=== PATIENT | male | born 1955 | race Caucasian/White ===

== ENCOUNTER → 2016-09-09 | Outpatient (CLI) | payer OTHER ==
[~2016-09-09] MED LIST: ASPCH81 PO; ASPI81TA28 PO; DIAZ-165 PO; GENT0.3S6 NAE; IBUP-1428 PO; LEVA1.25 INH; LEVA1.258 INH; LEVA45AE INH; LEVO125T4 PO; LEVO125T57 PO; LISI20TA55 PO; METO50TA7 PO; MODA1TAB PO; OXYC1TAB3 PO; OXYM10TA6 PO
[2016-09-09 13:44] LABS: INFLUENZA B PCR Neg for Influ B (NEG)
[2016-09-09 13:46] LABS: INFLUENZA A PCR POS for Influ A (NEG)
== END | disposition home or self-care (01) ==
LOC: C.LAB 11:30
PROVIDERS: ATTEND Internal Medicine Critical Care Medicine
DX: M79.1 Myalgia (principal); R09.89 Other specified symptoms and signs involving the circulatory and respiratory systems

== ENCOUNTER → 2016-10-04 | Outpatient (CLI) | payer OTHER ==
[2016-10-04 15:41] LABS: BASO ABS # 0.05 K/uL (0-0.2); COMPLETE YES; EOS % 8.8 %; HEMATOCRIT 43.3 % (42-52); IG% 0.4 %; LYMPH ABS # 2.29 K/uL (1.2-3.4); MEAN CORPUSCULAR HGB CONC 35.6 g/dl (32-36); MEAN PLATELET VOLUME 9.9 fL (7.4-10.4); MONO % 14.4 %; NEUT % 31.4 %; PLATELET COUNT 206 K/uL (130-400); RED BLOOD COUNT 4.81 M/uL (4.7-6.1); WHITE BLOOD COUNT 5.21 K/uL (4.8-10.8)
[2016-10-04 16:05] LABS: ALT/SGPT 43 U/L (12-78); AST/SGOT 36 U/L (15-37); BLOOD UREA NITROGEN 16 mg/dl (7-18); BUN/CREATININE RATIO 17.9 (10-20); CALCIUM 9.1 mg/dl (8.5-10.1); CARBON DIOXIDE 30 mmol/L (21-32); CHLORIDE 101 mmol/L (98-107); CHOLESTEROL 173 mg/dl (0-200); CREATININE 0.91 mg/dl (0.60-1.40); GLUCOSE 105 mg/dl (70-99); POTASSIUM 3.8 mmol/L (3.5-5.1); SODIUM 139 mmol/L (136-145)
[2016-10-04 16:22] LABS: ALKALINE PHOSPHATASE 99 U/L (45-117); CHOLESTEROL/HDL RATIO 5.6; HDL CHOLESTEROL 31 mg/dl; LDL CHOLESTEROL CALCULATED 123 mg/dl; THYROID STIMULATING HORMONE 0.505 uIu/ml (0.300-4.500); TOTAL IRON BINDING CAPACITY 313 mcg/dl (250-450); TRIGLYCERIDES 94 mg/dl (0-150); VERY LOW DENSITY LIPOPROT CALC 19 mg/dl
--- NOTE | 2016-10-08 10:04 | CODING QUERY MEDICAL NECESSITY ---
SUPPORTING DIAGNOSIS NEEDED Her ALFREDO, A supporting diagnosis is required for the test/procedure performed on this patient in order for us to be reimbursed by the patient's insurance. Please provide a supporting diagnosis for the following test/procedure listed below next to the test name along with your signature. *If there is no additional diagnosis for this patient that would support the following test/procedure please document that below next to the test/procedure. Test(s)/Procedure(s) that require a supporting diagnosis: * ([id number]) B12 VITAMIN LEVEL DIAGNOSIS: * ([id number]) VITAMIN D, 1, 25-DIHYDROXY DIAGNOSIS: * [id number] PSA DIAGNOSIS: DATE OF SERVICE: 10/04/16 Provider Signature: Date: Thank you Sameer Tapia [facility] Information Management Once completed, please kindly fax back to [phone] For questions please call [phone]
[2016-10-09 05:34] LABS: HEPATITIS C RNA TMA QUAL Not detected
== END | disposition home or self-care (01) ==
LOC: C.LAB 14:29
PROVIDERS: ATTEND Internal Medicine Pulmonary Disease
DX: I10 Essential (primary) hypertension (principal); B18.2 Chronic viral hepatitis C; E03.9 Hypothyroidism, unspecified; I51.9 Heart disease, unspecified; M79.1 Myalgia; G47.419 Narcolepsy without cataplexy; G47.33 Obstructive sleep apnea (adult) (pediatric); R79.89 Other specified abnormal findings of blood chemistry

== ENCOUNTER 2016-11-09 12:29 | Emergency (ER) | payer OTHER ==
[~2016-11-09] VITALS: Ht 182.9 cm; Wt 102.3 kg
[~2016-11-09 12:29] MED LIST changes: -ASPI81TA28 PO; -DIAZ-165 PO; -GENT0.3S6 NAE; -LEVA1.258 INH; -LEVA45AE INH; -LEVO125T4 PO
[2016-11-09 12:35] VITALS: TEMP 37.1; Ht 182.9 cm; Wt 102.3 kg
[2016-11-09] MEDS ORDERED: ASPI81TA28 PO (12:45)
[2016-11-09] MEDS ORDERED: LEVA45AE INH (12:52)
[2016-11-09] MEDS ORDERED: GENT0.3S6 NAE (12:52)
[2016-11-09] MEDS ORDERED: LEVO125T4 PO (12:52)
[2016-11-09] MEDS ORDERED: LEVA1.258 INH (12:52)
[2016-11-09] MEDS ORDERED: DIAZ-165 PO (12:52)
--- NOTE | 2016-11-09 13:41 | DIAGNOSTIC IMAGING REPORT ---
RIGHT FOOT 3 VIEWS CLINICAL HISTORY: Right foot pain. FINDINGS: 3 views of the right foot are compared to study dated 02/03/2009. The skeletal structures are well mineralized. No fracture is seen. Mild arthritic change is identified at the first tarsometatarsal and metatarsophalangeal joints. The joint spaces are otherwise preserved. There is a small dorsal calcaneal enthesophyte. Mild soft tissue swelling is suspected. A tiny thin metallic foreign body is identified on the plantar surface of the foot at the level of the metatarsal bases. IMPRESSION: 1. Mild soft tissue swelling and mild arthritic change as above. No acute bony abnormality is identified. 2. A tiny thin metallic foreign body is identified along the plantar aspect of the midfoot. Electronically signed by: Fabiano Staley M.D. 11/09/2016 1:40 PM Dictated Date/Time: 11/09/2016 1:37 PM
--- NOTE | 2016-11-09 14:11 | EMERGENCY ROOM VISIT NOTE ---
History First contact with patient: 12:59 Chief Complaint: FOOT PAIN Stated Complaint: INJURED R FOOT History of Present Illness The patient is a 61 year old male who presents to the Emergency Room with complaints of an injury to his right foot while helping a friend carry a heavy object down 2 flights of stairs 2 days ago. The patient reports that he did not know that there was a second flight, and when he made the turn, stepped down onto the step. The patient reports immediate pain in the bottom of the foot that has persisted. He has also noticed significant swelling. He denies any pain extending into the midfoot or leg. Denies paresthesias or numbness of the right foot or toes. The patient rates his discomfort a 7 out of 10 with weightbearing. Review of Systems 10 system review was performed and was negative except for pertinent positives and negatives as indicated in history of present illness Past Medical/Surgical History Medical Problems: (1) Herniated disc (2) lung problems Family History Diabetes mellitus Heart disease Hypertension Social History Smoking Status: Former Smoker Marital Status: Housing Status: lives with family Current/Historical Medications Scheduled Aspirin (Aspirin Ec), 81 MG PO DAILY Levothyroxine Sodium (Levothyroxine Sodium), 1 TAB PO DAILY Lisinopril/Hctz (Prinzide 20-25MG), 1 TAB PO BID Metoprolol Succ (Toprol Xl) (Toprol-Xl), 50 MG PO BID Modafinil (Provigil), 200 MG PO DAILY Oxycodone Ir (Roxicodone Ir), 10 MG PO Q6H Scheduled PRN Diazepam (Valium), 5 MG PO UD PRN for spasms Gentamicin Sulfate (Ophth) (Gentak), 2 SPRAYS LETITIA UD PRN for sinus infection Ibuprofen (Motrin), 800 MG PO Q8H PRN for Pain Levalbuterol Hcl (Levalbuterol Hcl), 3 ML INH QID PRN for Shortness of Breath Levalbuterol Tartrate (Levalbuterol Tartrate Hfa), 2 PUFF INH UD PRN for asthma symptoms Allergies Coded Allergies: Acetaminophen (Verified Allergy, Unknown, HAS TAKEN PERCOCET, 09/22/09) Physical Exam Vital Signs Date Time Temp Pulse Resp B/P Pulse Ox O2 Delivery O2 Flow Rate FiO2 11/09/16 12:35 37.1 60 18 166/92 96 Physical Exam CONSTITUTIONAL: Healthy and well nourished. Alert and oriented X 3 with positive affect. Patient does not appear in any acute distress. HEENT: Normocephalic, atraumatic. Pupils equal, round and reactive. NECK: Full active range of motion without discomfort. MUSCULOSKELETAL: Examination of the right foot shows notable edema near the origin of the plantar fascia. The patient has no significant tenderness to palpation over the medial or lateral calcaneal region. There is no tenderness to palpation through the metatarsal heads, phalanges or dorsal midfoot. Ankle exam is also normal. Capillary refill is less than 2 seconds. INTEGUMENTARY: No rash or other significant dermatologic conditions noted. NEUROLOGIC: Right foot and toes are sensory intact. Medical Decision & Procedures ER Provider Diagnostic Interpretation: My interpretation of right foot x-rays does not show any acute fractures or dislocations. Radiologist report is as follows: RIGHT FOOT 3 VIEWS CLINICAL HISTORY: Right foot pain. FINDINGS: 3 views of the right foot are compared to study dated 02/03/2009. The skeletal structures are well mineralized. No fracture is seen. Mild arthritic change is identified at the first tarsometatarsal and metatarsophalangeal joints. The joint spaces are otherwise preserved. There is a small dorsal calcaneal enthesophyte. Mild soft tissue swelling is suspected. A tiny thin metallic foreign body is identified on the plantar surface of the foot at the level of the metatarsal bases. IMPRESSION: 1. Mild soft tissue swelling and mild arthritic change as above. No acute bony abnormality is identified. 2. A tiny thin metallic foreign body is identified along the plantar aspect of the midfoot. ED Course Patient history and physical exam were performed. Nurse's notes were reviewed. The patient refused any analgesics while in the emergency department. X-rays of the right foot were normal. The patient was offered crutches, but refused. I also suggested that he follow-up with orthopedics for further reevaluation. The patient reports that he likely would not do this either. The patient was given instructions on the importance of deep ice massaging and stretching. If his symptoms are not better within the next week, or significantly worsen, I did encourage him to follow up with orthopedics for further management. The patient was happy with plan of care, voiced understanding of all discharge instructions, and rated his pain a 4 out of 10 at the conclusion of my exam. Medical Decision Impression Primary Impression: Traumatic plantar fasciitis Departure Information Referrals Cristhian Her PA-C (PCP) Patient Instructions My [facility]
[2016-11-09 14:16] VITALS: BP 183/106; PULSE 58; O2SAT 96
== END 2016-11-09 14:17 | disposition home or self-care (01) ==
LOC: C.EDB 12:29 → C.EDD 14:17
DX: M72.8 Other fibroblastic disorders (principal); Z87.891 Personal history of nicotine dependence; Z79.82 Long term (current) use of aspirin

== ENCOUNTER → 2017-01-10 | Outpatient (CLI) | payer OTHER ==
[~2017-01-10] MED LIST changes: -ASPCH81 PO; +ASPI81TA28 PO; +DIAZ-165 PO; +GENT0.3S6 NAE; -LEVA1.25 INH; +LEVA1.258 INH; +LEVA45AE INH; +LEVO125T5 PO; -LEVO125T57 PO; -OXYM10TA6 PO
--- NOTE | 2017-01-10 13:23 | DIAGNOSTIC IMAGING REPORT ---
LEFT WRIST 4 VIEWS HISTORY: Left wrist pain. COMPARISON: None. FINDINGS: There is no fracture or dislocation. Mild soft tissue swelling. Severe osteoarthritis of the first carpometacarpal joint. No radiopaque foreign bodies. IMPRESSION: No fractures. Electronically signed by: Blayne Winters M.D. 01/10/2017 1:22 PM Dictated Date/Time: 01/10/2017 1:19 PM
== END | disposition home or self-care (01) ==
LOC: C.RAD 12:39
PROVIDERS: ATTEND Physician Assistant
DX: M25.539 Pain in unspecified wrist (principal)

== ENCOUNTER → 2017-11-13 | Outpatient (CLI) | payer OTHER ==
[~2017-11-13] MED LIST changes: -METO50TA7 PO; +METO50TA8 PO
--- NOTE | 2017-11-13 18:18 | DIAGNOSTIC IMAGING REPORT ---
R HIP UNILATERAL 2 VIEWS CLINICAL HISTORY: Chronic right hip pain. COMPARISON: CT of the abdomen and pelvis November 10, 2007. FINDINGS: A 2.3 cm bone island is noted within the intertrochanteric portion of the right femur. No acute fracture is identified. Note is made of marked superior joint space narrowing. There is extensive osteophytosis. There is no evidence for avascular necrosis. IMPRESSION: 1. No acute fracture. 2. Severe osteoarthritis of the right hip. Electronically signed by: Yassine Meredith M.D. 11/13/2017 6:17 PM Dictated Date/Time: 11/13/2017 6:15 PM
--- NOTE | 2017-11-13 18:21 | DIAGNOSTIC IMAGING REPORT ---
L-SPINE MIN 4 VIEWS ROUTINE CLINICAL HISTORY: 62 years-old Male presenting with G89.29 Chronic pain. TECHNIQUE: Frontal, bilateral oblique, lateral, and coned in lateral views of the lumbar spine were obtained. COMPARISON: CT of the abdomen and pelvis from 11/10/2007. FINDINGS: Straightening of normal lumbar lordosis likely due to multilevel degenerative changes. No significant scoliosis. Vertebral bodies maintain normal height and alignment. Intervertebral disc height loss to varying degrees at every level with vacuum disc phenomenon also noted at nearly every level. Prominent osteophytosis. Subchondral sclerosis evident at L3-4. Posterior bony spurring noted at L2-3 and L3-4. Facet arthropathy suspected in the lower lumbar region. There may be osseous neural foraminal narrowing from L3-4 through L5-S1. No compression deformity or evidence of subluxation. IMPRESSION: Significant multilevel degenerative changes with suspected osseous neural foraminal narrowing from L3-4 through L5-S1. Electronically signed by: Deshaun Joseph M.D. 11/13/2017 6:20 PM Dictated Date/Time: 11/13/2017 6:17 PM
== END | disposition home or self-care (01) ==
LOC: C.RAD 17:37
PROVIDERS: ATTEND Physician Assistant
DX: G89.29 Other chronic pain (principal); M16.11 Unilateral primary osteoarthritis, right hip

== ENCOUNTER 2019-09-13 09:02 | Inpatient (IN) ==
--- NOTE | 2019-08-13 13:30 | PAT Medication Instructions ---
Medication Instructions Date of Service August 13, 2019 Home Medications Medication Instructions Recorded oxycodone 15 mg tablet 15 mg PO QID #120 tab 08/09/19 albuterol sulfate 1 puff INHALATION Q6H PRN armodafinil [Nuvigil] 250 mg PO QAM aspirin [Aspirin Low Dose] 81 mg PO QPM cyanocobalamin (vitamin B-12) 2,500 mcg SUBLINGUAL DAILY PRN levalbuterol HCl 1.25 mg INHALATION TID PRN levothyroxine 125 mcg PO QAM lisinopril-hydrochlorothiazide 1 tab PO BID loratadine 10 mg PO DAILY PRN metoprolol tartrate 50 mg PO BID [Multivitamin 50 Plus] 1 tab PO QAM [[place]-3 Fish Oil] 1 cap PO QPM pseudoephedrine HCl 30 mg PO Q6H PRN oxycodone 15 mg tablet 15 mg PO QID STOP taking 2 weeks before surgery If surgery is within 2 weeks, stop taking as soon as possible. [[place]-3 Fish Oil] 1 cap PO QPM DO NOT take the morning of surgery armodafinil [Nuvigil] 250 mg PO QAM cyanocobalamin (vitamin B-12) 2,500 mcg SUBLINGUAL DAILY PRN lisinopril-hydrochlorothiazide 1 tab PO BID loratadine 10 mg PO DAILY PRN [Multivitamin 50 Plus] 1 tab PO QAM pseudoephedrine HCl 30 mg PO Q6H PRN Take morning of surgery With a small sip of water, OTHERWISE NOTHING TO EAT OR DRINK AFTER MIDNIGHT: albuterol sulfate 1 puff INHALATION Q6H PRN (if needed) levalbuterol HCl 1.25 mg INHALATION TID PRN (if needed) levothyroxine 125 mcg PO QAM metoprolol tartrate 50 mg PO BID oxycodone 15 mg tablet 15 mg PO QID (if needed, may be taken up to four hours before surgery) Take evening before surgery albuterol sulfate 1 puff INHALATION Q6H PRN (if needed) aspirin [Aspirin Low Dose] 81 mg PO QPM cyanocobalamin (vitamin B-12) 2,500 mcg SUBLINGUAL DAILY PRN (if needed) levalbuterol HCl 1.25 mg INHALATION TID PRN (if needed) lisinopril-hydrochlorothiazide 1 tab PO BID loratadine 10 mg PO DAILY PRN (if needed) metoprolol tartrate 50 mg PO BID pseudoephedrine HCl 30 mg PO Q6H PRN (if needed) oxycodone 15 mg tablet 15 mg PO QID Other Notes If you have any questions please call us at [phone] or [phone] or [phone] or [phone]
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
[2019-08-13 14:44] LABS: Appearance Urine Clear (Clear); Bilirubin Urine Negative (Negative); Blood Urine Negative (Negative); Color Urine Yellow; Glucose Urine UA Negative (Negative); Ketones Urine Negative (Negative); Leukocyte Esterase Urine Negative (Negative); Nitrite Urine Negative (Negative); Protein Urine Negative (Negative); Specific Gravity Urine 1.016 (1.000-1.030); Urobilinogen Urine Negative (Negative)
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
[~2019-09-13 09:02] MED LIST changes: +ACETAMINOPHEN 500 MG TAB PO SCH; -ASPI81TA28 PO; +BUPIVACAINE 0.5 % 5 MG/1 ML PF 10ML VIAL ONE; +CEFAZOLIN 2000MG 2,000 MG/15 ML SYR IV SCH; +CeleBREX 200 MG CAP PO SCH; -DIAZ-165 PO; +FAMOTIDINE 20 MG TAB PO SCH; -GENT0.3S6 NAE; -IBUP-1428 PO; -LEVA1.258 INH; -LEVA45AE INH; -LEVO125T5 PO; -LISI20TA55 PO; +LR 15ML/HR IV SCH; +LR 500ML BOLUS, THEN 15ML/HR IV SCH; +LR 60ML/HR IV SCH; -METO50TA8 PO; +METOCLOPRAMIDE HCL 10 MG TABLET PO SCH; -MODA1TAB PO; -OXYC1TAB3 PO; +ROPIVACAINE 0.5% HCL/PF 150 MG, BUPIVACAINE 0.5% MPF 30 ML, EPINEPHrine 30MG/30ML (OR U... INSTIL SCH; +TRANEXAMIC ACID 1,000 MG **IV Intra-op IV SCH; +TRANEXAMIC ACID 1,000 MG **IV Pre-op IV SCH; +dexAMETHasone 4 MG TAB PO SCH
[2019-09-13] MEDS ORDERED: fentaNYL citrate 100 MCG/2 ML VIAL ONE (09:11)
[2019-09-13] MEDS ORDERED: MIDAZOLAM HCL 1 MG/ML 2ML VIAL ONE (09:11)
--- NOTE | 2019-09-13 10:26 | History & Physical Bridge Note ---
Date of Service September 13, 2019 History & Physical Bridge Note I have examined the patient, reviewed the History & Physical and in the interval since the performance of the History & Physical I have noted the following changes of clinical significance: no changes noted
[2019-09-13] MEDS ORDERED: ePHEDrine sulfate 50 MG/ML AMP IV PRN (10:41)
[2019-09-13] MEDS ORDERED: HYDROmorphone INJ 1 MG/ML SYRINGE IV PRN (10:41)
[2019-09-13] MEDS ORDERED: KETOROLAC 30 MG/ML VIAL IV PRN (10:41)
[2019-09-13] MEDS ORDERED: ONDANSETRON INJ 2 MG/ML 2 ML VIAL IV PRN ×2 (10:41→14:01)
[2019-09-13] MEDS ORDERED: ATROPINE SULFATE 0.1 MG/ML 10ML SYR IV PRN (10:41)
[2019-09-13] MEDS ORDERED: BACITRACIN INJ 50,000 UNIT VIAL ONE (10:57)
[2019-09-13] MEDS ORDERED: ORTHO JOINT ANESTHETIC ONE (10:57)
[2019-09-13] MEDS ORDERED: PROPOFOL IV EMULSION 10 MG/ML 20 ML VIAL IV ONE (11:25)
[2019-09-13] MEDS ORDERED: ePHEDrine sulfate 50 MG/ML AMP ONE (11:29)
[2019-09-13] MEDS ORDERED: GLYCOPYRROLATE 0.2 MG/ML VIAL ONE (12:17)
--- NOTE | 2019-09-13 12:23 | Operative Report ---
Post Operative Report Pre & Post Diagnosis Operation Date: 09/13/19 12:00 Pre-Op Diagnosis: Right Hip Degenerative Joint Disease Post-Op Diagnosis: Right Hip Degenerative Joint Disease I identified the patient and participated in the time-out.: Yes Procedure Operation Date: 09/13/19 12:00 Actual Procedures p Right Total Hip Arthroplasty--Uncemented(Right) - Alexis Maciel Surgeon Alexis Maciel Change Attendant Garry Nwe PA-C Estimated Blood Loss 40 Findings Consistent with Post-Op Diagnosis Specimens None Complications none Disposition Disposition: Recovery Room Description of Procedure IMPLANTS USED: [place] size 58 mm Trident 2 Tritanium acetabular cup, 1 acetabular screw, a 36 mm X3 elevated liner, a #6 Accolade 2 stem with a 132 degree neck, 36 mm -5 ceramic head INDICATIONS: Mr. Noriega is a pleasant [(male/female)] who has unfortunately failed all forms of conservative measures. Therefore, they have has decided to undergo elective surgical intervention. All risks and benefits of the surgery were discussed with the patient and the family in entirety. PROCEDURE: The patient was brought to the operating room and properly identified by myself, anesthesia, and staff. Patient was given a spinal anesthetic and placed on the operating table with the right hip up. The hip was then prepped and draped in the standard orthopedic fashion. We made a standard posterolateral approach over the greater trochanteric area. We then dissected down to subcutaneous tissue until the fascia was identified. We incised the fascia in line with the skin incision. We then split the gluteus talita muscles with finger dissection. We then put the Charnley retractor in place. We placed the retractor underneath the gluteus medius to expose the piriformis. The piriformis was then tagged with a tag suture and released from the insertion from the greater trochanteric area with the use of electrocautery. We then performed a T capsulotomy and the femoral head and neck were atraumatically dislocated. We then performed femoral neck osteotomy at the pre- template site. We removed the femoral head and neck without difficulty. We then placed the retractor around the acetabulum. We then began to ream the acetabulum to the appropriate size. We then impacted the cup into place and had a very good fixation within the pelvis. We then put the liner in place as well. Then using multiple size approaches from the Accolade 2 system a size ##6 fit very nicely in the proximal femur. I then put trial components in place. WE had very good range of motion, excellent stability, and excellent leg length equality. We removed the trial components and irrigated the wound. We then impacted the components in place and irrigated the wound once more. We then closed the capsule and fascia with a 0 Vicryl suture, the deep dermis with 2-0 Vicryl suture, and finally the skin with a running 3-0 Vicryl subcuticular stitch. A sterile dressing was applied. The patient was taken to the recovery room in stable condition. Due to the complex nature of the procedure, the entire surgery was performed with the operational assistance of Garry New PA-C. The assistant operator was under direct supervision, was involved in the actual performance of all aspects of the surgical procedure including hemostasis, tissue retraction and incision, instrument management, patient positioning, and wound closure. I attest to the content of the Intraoperative Record and any orders documented therein. Any exceptions are noted below.
--- NOTE | 2019-09-13 13:41 | Anesthesiology Progress Note ---
Date of Service September 13, 2019 Anesthesia Post Procedure Vital Signs Vital Signs: Temp Pulse Pulse Resp BP Pulse Ox 09/13/19 13:25 36.3 C L 62 14 107/71 98 09/13/19 13:15 66 20 114/71 95 09/13/19 13:05 67 15 126/73 100 09/13/19 12:55 62 12 122/68 100 09/13/19 12:49 36 C L 66 16 106/62 99 09/13/19 09:38 36.8 C 57 L 18 176/93 H 98 Pain Intensity Generalized: Pain Intensity: 6 Transfer of Care Handoff Completed per policy Notes Mental Status: alert / awake / arousable Patient Amnestic to Procedure: Yes Nausea / Vomiting: adequately controlled Pain: adequately controlled Airway Patency, RR, SpO2: stable & adequate BP & HR: stable & adequate Hydration State: stable & adequate Neuraxial Anesthesia: was administered and sensory block is resolving Anesthetic Complications: no major complications apparent
[2019-09-13] MEDS ORDERED: MAGNESIUM HYDROXIDE SUSP 30 ML UDC PO PRN (14:01)
[2019-09-13] MEDS ORDERED: bisacodyL 10 MG SUPP PR PRN (14:01)
[2019-09-13] MEDS ORDERED: TRAMADOL HCL 50 MG TABLET PO PRN (14:01)
[2019-09-13] MEDS ORDERED: ALBUTEROL HFA 8 GM INHALER INH PRN (14:01)
[2019-09-13] MEDS ORDERED: METOCLOPRAMIDE HCL INJ 5 MG/ML 2 ML VIAL IV PRN (14:01)
[2019-09-13] MEDS ORDERED: NALOXONE HCL 0.4 MG/1 ML VIAL/CARP IV PRN (14:01)
[2019-09-13] MEDS ORDERED: SODIUM CHLORIDE 0.9% 1000ML 1,000 ML IV SCH (14:01)
[2019-09-13] MEDS ORDERED: LORATADINE 10 MG TAB PO PRN (14:01)
[2019-09-13] MEDS: OXYCODONE HCL IR 5 MG TAB (IMMEDIATE RELEASE) PO SCH ×3 (14:47→20:52)
[2019-09-13] MEDS: ACETAMINOPHEN 500 MG TAB PO SCH ×2 (14:48→21:03)
[2019-09-13] MEDS ORDERED: Nursing to Pharmacy Communication ONE ×3 (17:36→18:04)
[2019-09-13] MEDS ORDERED: TRANEXAMIC ACID / 0.7% NACL 1,000 MG/100 ML BAG IV SCH (18:00)
[2019-09-13] MEDS: LISINOPRIL/HCTZ 20/25MG 1 TAB PO SCH (20:51)
[2019-09-13] MEDS: DOCUSATE SODIUM 100 MG CAP PO SCH (20:51)
[2019-09-13] MEDS: CEFAZOLIN 2000MG 2,000 MG/15 ML SYR IV SCH (20:52)
[2019-09-13] MEDS: ASPIRIN 81 MG ECTAB PO SCH (20:52)
[2019-09-13] MEDS: METOPROLOL TARTRATE 50 MG TAB PO SCH (20:52)
[2019-09-13] MEDS ORDERED: SENNA 8.6 MG TAB PO SCH (21:00)
[2019-09-14] MEDS: OXYCODONE HCL IR 5 MG TAB (IMMEDIATE RELEASE) PO SCH ×2 (00:20→08:46)
[2019-09-14] MEDS: CEFAZOLIN 2000MG 2,000 MG/15 ML SYR IV SCH (02:27)
[2019-09-14] MEDS: ACETAMINOPHEN 500 MG TAB PO SCH (05:11)
[2019-09-14 05:40] LABS: Basophils # (auto) 0.01 K/uL (0-0.2); Basophils % (auto) 0.1 %; Eosinophils # (auto) 0.01 K/uL (0-0.5); Eosinophils % (auto) 0.1 %; Hematocrit (blood only) 35.1 % (42-52); Hemoglobin 12.4 g/dL (14.0-18.0); Immature Granulocytes # (auto) 0.02 K/uL (0.00-0.02); Immature Granulocytes % (auto) 0.2 %; Lymphocytes # (auto) 1.39 K/uL (1.2-3.4); Lymphocytes % (auto) 11.2 %; Mean Corpuscular Hemoglobin 32.5 pg (25-34); Mean Corpuscular Hgb Conc 35.3 g/dL (32-36); Mean Corpuscular Volume 91.9 fL (80-100); Mean Platelet Volume 9.7 fL (7.4-10.4); Monocytes # (auto) 1.19 K/uL (0.11-0.59); Monocytes % (auto) 9.6 %; Neutrophils # (auto) 9.82 K/uL (1.4-6.5); Neutrophils % (auto) 78.8 %; Platelet Count 199 K/uL (130-400); RDW Coefficient of Variation 12.7 % (11.5-14.5); RDW Standard Deviation 42.9 fL (36.4-46.3); Red Blood Count 3.82 M/uL (4.7-6.1); White Blood Count 12.44 K/uL (4.8-10.8)
[2019-09-14 06:10] LABS: BUN Creatinine Ratio 15.7 (10-20); Calcium 8.2 mg/dl (8.5-10.1); Creatinine Clr Calc Pharmacy 99.6 ml/min; Est GFR (African American) 102.8; Est GFR (Non-African American) 88.7; Potassium 3.4 mmol/L (3.5-5.1)
[2019-09-14] MEDS ORDERED: dexAMETHasone 10 MG in SYRINGE 0 ML IV SCH (08:00)
--- NOTE | 2019-09-14 08:10 | Anesthesiology Progress Note ---
Date of Service September 14, 2019 Anesthesia Post Procedure Vital Signs Vital Signs: Temp Pulse Pulse Resp BP Pulse Ox 09/14/19 07:39 36.6 C 62 18 154/79 H 97 09/14/19 04:01 36.7 C 70 18 137/59 L 95 09/14/19 00:35 167/80 H 09/13/19 23:35 36.7 C 71 16 188/88 H 97 09/13/19 20:50 71 148/76 H 09/13/19 20:02 36.3 C L 71 16 142/71 H 95 09/13/19 16:51 36.3 C L 64 16 137/74 96 09/13/19 15:48 36.3 C L 60 16 138/74 99 09/13/19 14:50 36.3 C L 64 16 133/68 98 09/13/19 14:01 36.4 C L 59 L 18 144/79 H 99 09/13/19 13:25 36.3 C L 62 14 107/71 98 09/13/19 13:15 66 20 114/71 95 09/13/19 13:05 67 15 126/73 100 09/13/19 12:55 62 12 122/68 100 09/13/19 12:49 36 C L 66 16 106/62 99 09/13/19 09:38 36.8 C 57 L 18 176/93 H 98 Pain Intensity Generalized: Pain Intensity: 7 Notes Mental Status: alert / awake / arousable Nausea / Vomiting: adequately controlled Pain: adequately controlled Airway Patency, RR, SpO2: stable & adequate BP & HR: stable & adequate Hydration State: stable & adequate Neuraxial Anesthesia: was administered and sensory block resolved Anesthetic Complications: no major complications apparent and Pt Satisfied with anesthetic care
[2019-09-14] MEDS: METOPROLOL TARTRATE 50 MG TAB PO SCH (08:47)
[2019-09-14] MEDS: ASPIRIN 81 MG ECTAB PO SCH (08:47)
[2019-09-14] MEDS: DOCUSATE SODIUM 100 MG CAP PO SCH (08:47)
[2019-09-14] MEDS: LISINOPRIL/HCTZ 20/25MG 1 TAB PO SCH (08:48)
[2019-09-14] MEDS ORDERED: MULTIVITAMIN TAB PO SCH (09:00)
[2019-09-14] MEDS ORDERED: LEVOTHYROXINE SODIUM 125 MCG TABLET PO SCH (09:00)
--- NOTE | 2019-09-14 09:21 | Orthopedic Progress Note ---
Date of Service September 14, 2019 Assessment & Plan (1) Degenerative joint disease of right hip: Postop day 1 status post right total hip arthroplasty. Mild hyponatremia and hypokalemia noted. Plan for repeat BMP later this week with results going to his primary care physician and Dr. Singh. PT/OT protocols. Weightbearing as tolerated. DVT prophylaxis with SCDs and aspirin. Pain management as written. DC planning-plan for home health services upon discharge. Subjective , Postop day 1 Patient is currently sitting up at the bedside eating his breakfast. He has no complaints. Yesterday he states he had difficulty with urination. Overnight though, he states that this began to dissipate and he is now urinating freely on his own. He states he feels well. Pain is controlled. Denies shortness of breath, chest pain, lightheadedness. He is hoping to go home today. Physical Exam Physical Exam: Silverlon dressing is clean, dry, and intact. Hemovac drainage was 25 cc from the previous shift. Calves are soft and nontender. Neurovascular is intact. Toes are mobile. He has good dorsiflexion and plantarflexion of his right foot and ankle. Hip appears located. Results & Data ([facility]) Vital Signs (Past 12 Hours) Vital Signs Temp Pulse Resp BP Pulse Ox 09/14/19 07:39 36.6 C 62 18 154/79 H 97 09/14/19 04:01 36.7 C 70 18 137/59 L 95 09/14/19 00:35 167/80 H 09/13/19 23:35 36.7 C 71 16 188/88 H 97 Laboratory Results Laboratory Results WBC 12.44 K/uL (4.8-10.8) H 09/14/19 05:08 RBC 3.82 M/uL (4.7-6.1) L 09/14/19 05:08 Hgb 12.4 g/dL (14.0-18.0) L 09/14/19 05:08 Hct 35.1 % (42-52) L 09/14/19 05:08 MCV 91.9 fL (80-100) 09/14/19 05:08 MCH 32.5 pg (25-34) 09/14/19 05:08 MCHC 35.3 g/dL (32-36) 09/14/19 05:08 RDW Std Deviation 42.9 fL (36.4-46.3) 09/14/19 05:08 RDW Coeff of Sarah 12.7 % (11.5-14.5) 09/14/19 05:08 Plt Count 199 K/uL (130-400) 09/14/19 05:08 MPV 9.7 fL (7.4-10.4) 09/14/19 05:08 Immature Gran % (Auto) 0.2 % 09/14/19 05:08 Neut % (Auto) 78.8 % 09/14/19 05:08 Lymph % (Auto) 11.2 % 09/14/19 05:08 [place] % (Auto) 9.6 % 09/14/19 05:08 Eos % (Auto) 0.1 % 09/14/19 05:08 Baso % (Auto) 0.1 % 09/14/19 05:08 Immature Gran # (Auto) 0.02 K/uL (0.00-0.02) 09/14/19 05:08 Neut # (Auto) 9.82 K/uL (1.4-6.5) H 09/14/19 05:08 Lymph # (Auto) 1.39 K/uL (1.2-3.4) 09/14/19 05:08 [place] # (Auto) 1.19 K/uL (0.11-0.59) H 09/14/19 05:08 Eos # (Auto) 0.01 K/uL (0-0.5) 09/14/19 05:08 Baso # (Auto) 0.01 K/uL (0-0.2) 09/14/19 05:08 Sodium 133 mmol/L (136-145) L 09/14/19 05:08 Potassium 3.4 mmol/L (3.5-5.1) L 09/14/19 05:08 Chloride 97 mmol/L (98-107) L 09/14/19 05:08 Carbon Dioxide 29 mmol/L (21-32) 09/14/19 05:08 Anion Gap 7.0 (3-11) 09/14/19 05:08 BUN 14 mg/dl (7-18) 09/14/19 05:08 Creatinine 0.90 mg/dl (0.6-1.4) 09/14/19 05:08 Est Cr Clr Drug Dosing 99.6 ml/min 09/14/19 05:08 Est GFR ( Amer) 102.8 09/14/19 05:08 Est GFR (Non-Af Amer) 88.7 09/14/19 05:08 BUN/Creatinine Ratio 15.7 (10-20) 09/14/19 05:08 Glucose 147 mg/dl (70-99) H 09/14/19 05:08 Calcium 8.2 mg/dl (8.5-10.1) L 09/14/19 05:08 Urine Color Yellow 08/13/19 Unknown Urine Appearance Clear (Clear) 08/13/19 Unknown Urine pH 5.0 (4.5-7.5) 08/13/19 Unknown Ur Specific [facility] [place] 1.016 (1.000-1.030) 08/13/19 Unknown Urine Protein Negative (Negative) 08/13/19 Unknown Urine Glucose (UA) Negative (Negative) 08/13/19 Unknown Urine Ketones Negative (Negative) 08/13/19 Unknown Urine Blood Negative (Negative) 08/13/19 Unknown Urine Nitrite Negative (Negative) 08/13/19 Unknown Urine Bilirubin Negative (Negative) 08/13/19 Unknown Urine Urobilinogen Negative (Negative) 08/13/19 Unknown Ur Leukocyte Esterase Negative (Negative) 08/13/19 Unknown Nasal Screen MRSA (PCR) Negative (Negative) 08/13/19 Unknown Blood Type O Positive 08/13/19 13:53 Antibody Screen NEGATIVE 08/13/19 13:53
[2019-09-14] MEDS ORDERED: POTASSIUM CHLORIDE 20 MEQ TABCR PO ONE (09:22)
--- NOTE | 2019-09-14 12:54 | Discharge Summary ---
Date of Service September 14, 2019 Admission HPI Per Admitting Provider Plan is to admit and undergo right total hip arthroplasty. Pt plans home dc and home pt Principal Diagnosis Right hip osteoarthritis Discharge Exam Patient's dressing remaining intact. Calves soft nontender. Neurovascular intact. Hip located. Discharge Data Allergies Allergy/AdvReac Type Severity Reaction Status Date / Time latex Allergy UNSURE Verified 09/13/19 09:33 acetaminophen AdvReac Unknown AVOIDS D/T Verified 09/13/19 09:33 LIVER Consultations 09/14/19 08:00 Consult Case Management - Discharge Planning Routine Procedures Performed Operation Date: 09/13/19 12:00 Actual Procedures p Right Total Hip Arthroplasty--Uncemented(Right) - [facility] Course (1) Degenerative joint disease of right hip: Postop day 1 status post right total hip arthroplasty. Mild hyponatremia and hypokalemia noted. Plan for repeat BMP later this week with results going to his primary care physician and Dr. Singh. PT/OT protocols. Weightbearing as tolerated. DVT prophylaxis with SCDs and aspirin. Pain management as written. DC planning-plan for home health services upon discharge. Patient continues to progress with physical therapy and remained stable. 1 dose of oral potassium was given due to mild hyponatremia. Plans will be for repeat BMP on an outpatient basis this week with results to be sent to primary care provider. Total Time Total Time Spent Total Time Spent (In Minutes): 5 Discharge Plan Discharge Items Patient Disposition: Home - Home Health Services Reason For Visit: Right Hip Osteoartritis Discharge Diagnosis: Right Hip Osteoarthritis Activity: Per Instructions section Weightbearing: Full weightbearing Weightbearing Comment: as tolerated with walker Non-emergency contact: Surgeon Call non-emergency contact if: your pain is not controlled, your temperature is above 101.5, your wound has increased redness and your wound has increased drainage Follow-up/Referrals: Titi Her PA-C [Primary Care Provider] - Diet: Regular Ambulatory Orders: Basic Metabolic Panel (Routine) Timeframe: 2 Days Location: Determined by Patient Ordered By: Garry Mead Attending Provider Instructions: PLEASE FOLLOW DR FORRESTER'S TOTAL HIP ARTHROPLASTY INSTUCTIONS WRITTEN. YOU WILL RECIEVE THEM PRIOR TO YOUR DISHCARGE. FOLLOW UP WITH DR FORRESTER IN 2 WEEKS. PLEASE CALL FOR AN APPOINTMENT IF ONE HAS NOT BEEN SCHEDULED. [phone] Your pain medication will be sent in to your pharmacy by Dr Forrester's office. Silverlon- This is a large adhesive bandage that contains silver ions. This helps your incision heal by fighting off bacteria and protecting it from the outside environment. You are permitted to shower with this dressing. This will remain on your incision for 7 days and then should be removed. Some visible blood or drainage through the dressing window is normal. If there is significant drainage or leaking noted before the 7 days notify your doctor's office immediately. Once removed, keep incision clean and dry. If there is any drainage or redness noted, please call your surgeon. Pending Studies at Discharge: Yes Studies:: pathology report Stand-Alone Forms: My [facility], Opioid Pain Management, Smoking Cessation Medications and DC Order Prescriptions: New sennosides [Senokot] 8.6 mg Tablet 17.2 mg PO HS PRN (Reason: constipation) Qty: 30 RF: 0 aspirin [Ecotrin Low Strength] 81 mg Tablet,Delayed Release (Dr/Ec) 81 mg PO BID 30 Days Qty: 60 RF: 0 cefadroxil 500 mg capsule 500 mg PO BID Qty: 28 RF: 1 Continued oxycodone 15 mg tablet 15 mg PO QID Qty: 120 RF: 0 levothyroxine 125 mcg Tablet 125 mcg PO QAM RF: 0 metoprolol tartrate 50 mg Tablet 50 mg PO BID RF: 0 lisinopril-hydrochlorothiazide 20-25 mg Tablet 1 tab PO BID RF: 0 Multivitamin 50 Plus Tablet 1 tab PO QAM RF: 0 armodafinil [Nuvigil] 250 mg Tablet 250 mg PO QAM RF: 0 albuterol sulfate 90 mcg/actuation Hfa Aerosol Inhaler 1 puff INHALATION Q6H PRN (Reason: Shortness Of Breath) RF: 0 levalbuterol HCl 1.25 mg/0.5 mL Solution For Nebulization 1.25 mg INHALATION TID PRN (Reason: Shortness Of Breath) RF: 0 cyanocobalamin (vitamin B-12) [Vitamin B-12] 2,500 mcg Tablet, Sublingual 2,500 mcg SUBLINGUAL DAILY PRN (Reason: NEEDED) RF: 0 pseudoephedrine HCl 30 mg Tablet 30 mg PO Q6H PRN (Reason: Congestion) RF: 0 loratadine 10 mg Tablet 10 mg PO DAILY PRN (Reason: Congestion) RF: 0 Discontinued aspirin [Aspirin Low Dose] 81 mg Tablet,Delayed Release (Dr/Ec) 81 mg PO QPM RF: 0 Thayer-3 Fish Oil 300-1,000 mg Capsule 1 cap PO QPM RF: 0 Discharge Orders: Discharge Order (Routine); Ordered 09/14/19 Ordered By: Garry Biggs/Other Patient Handouts: Surgery Prevent DVT After, Replacement Hip Total, Replacement Hip After Hospital Admission Data Admit Date/Time: 09/13/19 12:58 Attending Provider: Alexis Forrester Admit Provider: Alexis Forrester Primary Care Provider: Titi Her Other Interventions: Discharge Summary Assessment (RN) Last Done: 09/14/19 09:52
== END 2019-09-14 13:19 | disposition home health service (06) | DRG 470 ==
LOC: ASU 09:02 → 3E 12:58

== ENCOUNTER 2022-12-17 05:44 | Observation (INO) ==
--- NOTE | 2022-10-23 08:54 | PAT Medication Instructions ---
Medication Instructions Date of Service October 23, 2022 Home Medications Medication Instructions Recorded albuterol sulfate 90 mcg/actuation 1 puff inhalation Q6H PRN 01/31/21 aerosol inhaler Shortness Of Breath #18 grams CPAP Supplies #1 ea 08/02/21 diclofenac sodium 1 % topical gel 2 g topical QID PRN pain, moderate 03/13/22 #100 grams diazepam 5 mg tablet (Valium) 5 mg PO TID PRN muscle spasm #90 04/18/22 tabs levothyroxine 125 mcg tablet 125 mcg PO QAM #90 tabs 05/14/22 armodafinil 250 mg tablet (Nuvigil) 250 mg PO QAM #90 tabs 05/30/22 lisinopril 20 1 tab PO BID #180 tabs 06/10/22 mg-hydrochlorothiazide 25 mg tablet metoprolol tartrate 50 mg tablet 50 mg PO BID #180 tabs 07/02/22 amlodipine 10 mg tablet 5 mg PO BID #90 tabs 09/25/22 oxycodone 20 mg tablet 20 mg PO QID PRN pain 30 days #120 10/01/22 tabs clonidine HCl 0.1 mg tablet 0.1 mg PO TID PRN hypertensive 10/07/22 emergency #90 tabs levalbuterol HCl 1.25 mg/0.5 mL solution for nebulization 1.25 mg inhalation TID PRN [id number]-[id number]-wjdedc tablet (Multivitamin 50 Plus tablet) 1 tab PO QAM albuterol sulfate 90 mcg/actuation aerosol inhaler 1 puff inhalation Q6H PRN CPAP Supplies diclofenac sodium 1 % topical gel 2 g topical QID PRN diazepam 5 mg tablet (Valium) 5 mg PO TID PRN levothyroxine 125 mcg tablet 125 mcg PO QAM armodafinil 250 mg tablet (Nuvigil) 250 mg PO QAM lisinopril 20 mg-hydrochlorothiazide 25 mg tablet 1 tab PO BID metoprolol tartrate 50 mg tablet 50 mg PO BID aspirin 81 mg tablet,delayed release 81 mg PO HS fluticasone 100 mcg-salmeterol 50 mcg/dose blistr powdr for inhalation 1 inh inhalation BID fluticasone propionate 50 mcg/actuation nasal spray,suspension 1 spray intranasal BID omega-3 fatty acids 1,000 mg capsule 1,000 mg PO HS amlodipine 10 mg tablet 5 mg PO BID oxycodone 20 mg tablet 20 mg PO QID PRN clonidine HCl 0.1 mg tablet 0.1 mg PO TID PRN gabapentin 300 mg capsule 300 mg PO QAM prednisone 20 mg tablet 10 mg PO QAM spironolactone 25 mg tablet 12.5 mg PO QAM ASK your prescriber and surgeon aspirin 81 mg tablet,delayed release 81 mg PO HS STOP taking 2 weeks before surgery (or as soon as possible if surgery is within 2 weeks) omega-3 fatty acids 1,000 mg capsule 1,000 mg PO HS STOP taking 24 hours before surgery diclofenac sodium 1 % topical gel 2 g topical QID PRN DO NOT take the morning of surgery klxxlpkqnljw-tgtevknq-iojble tablet (Multivitamin 50 Plus tablet) 1 tab PO QAM armodafinil 250 mg tablet (Nuvigil) 250 mg PO QAM lisinopril 20 mg-hydrochlorothiazide 25 mg tablet 1 tab PO BID spironolactone 25 mg tablet 12.5 mg PO QAM Take morning of surgery With a small sip of water, OTHERWISE NOTHING TO EAT OR DRINK AFTER MIDNIGHT: levalbuterol HCl 1.25 mg/0.5 mL solution for nebulization 1.25 mg inhalation TID PRN(if needed) albuterol sulfate 90 mcg/actuation aerosol inhaler 1 puff inhalation Q6H PRN(use if needed; please bring with you to hospital day of surgery if possible) diazepam 5 mg tablet (Valium) 5 mg PO TID PRN(if needed) levothyroxine 125 mcg tablet 125 mcg PO QAM metoprolol tartrate 50 mg tablet 50 mg PO BID fluticasone 100 mcg-salmeterol 50 mcg/dose blistr powdr for inhalation 1 inh inhalation BID fluticasone propionate 50 mcg/actuation nasal spray,suspension 1 spray intranasal BID amlodipine 10 mg tablet 5 mg PO BID oxycodone 20 mg tablet 20 mg PO QID PRN(if needed) clonidine HCl 0.1 mg tablet 0.1 mg PO TID PRN(if needed) gabapentin 300 mg capsule 300 mg PO QAM prednisone 20 mg tablet 10 mg PO QAM Take evening before surgery levalbuterol HCl 1.25 mg/0.5 mL solution for nebulization 1.25 mg inhalation TID PRN(if needed) albuterol sulfate 90 mcg/actuation aerosol inhaler 1 puff inhalation Q6H PRN(if needed) diazepam 5 mg tablet (Valium) 5 mg PO TID PRN(if needed) lisinopril 20 mg-hydrochlorothiazide 25 mg tablet 1 tab PO BID metoprolol tartrate 50 mg tablet 50 mg PO BID fluticasone 100 mcg-salmeterol 50 mcg/dose blistr powdr for inhalation 1 inh inhalation BID fluticasone propionate 50 mcg/actuation nasal spray,suspension 1 spray intranasal BID amlodipine 10 mg tablet 5 mg PO BID oxycodone 20 mg tablet 20 mg PO QID PRN(if needed) clonidine HCl 0.1 mg tablet 0.1 mg PO TID PRN(if needed) Other Notes If you have any questions please call us at [phone] or [phone] or [phone] or [phone]
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
[~2022-12-17 05:44] MED LIST changes: -ACETAMINOPHEN 500 MG TAB PO SCH; -BUPIVACAINE 0.5 % 5 MG/1 ML PF 10ML VIAL ONE; -CEFAZOLIN 2000MG 2,000 MG/15 ML SYR IV SCH; -CeleBREX 200 MG CAP PO SCH; -FAMOTIDINE 20 MG TAB PO SCH; -LR 15ML/HR IV SCH; -LR 500ML BOLUS, THEN 15ML/HR IV SCH; -METOCLOPRAMIDE HCL 10 MG TABLET PO SCH; -ROPIVACAINE 0.5% HCL/PF 150 MG, BUPIVACAINE 0.5% MPF 30 ML, EPINEPHrine 30MG/30ML (OR U... INSTIL SCH; -TRANEXAMIC ACID 1,000 MG **IV Intra-op IV SCH; -TRANEXAMIC ACID 1,000 MG **IV Pre-op IV SCH; +ceFAZolin 2000MG 2,000 MG/15 ML SYR IV SCH; -dexAMETHasone 4 MG TAB PO SCH
[2022-12-17] MEDS ORDERED: LR 60ML/HR IV SCH (06:00)
[2022-12-17] MEDS ORDERED: ceFAZolin 2000MG 2,000 MG/15 ML SYR IV SCH (06:00)
[2022-12-17] MEDS ORDERED: LIDOCAINE 2% MPF LOCAL 5 ML VIAL ONE (06:43)
[2022-12-17] MEDS ORDERED: MIDAZOLAM HCL 1 MG/ML 2ML VIAL ONE (06:43)
[2022-12-17] MEDS ORDERED: fentaNYL citrate PF 100 MCG/2 ML VIAL ONE (06:43)
[2022-12-17] MEDS ORDERED: PROPOFOL IV EMULSION 10 MG/ML 20 ML VIAL IV ONE ×2 (06:43→09:16)
[2022-12-17] MEDS ORDERED: ONDANSETRON INJ 2 MG/ML 2 ML VIAL ONE (06:43)
[2022-12-17] MEDS ORDERED: DEXAMETHASONE SOD INJ 4 MG/ML VIAL ONE (06:43)
[2022-12-17] MEDS ORDERED: SUCCINYLCHOLINE CHLORIDE 20 MG/ML 10 ML VIAL IV ONE (06:43)
[2022-12-17] MEDS ORDERED: ATROPINE SULFATE 0.1 MG/ML 10ML SYR IV PRN (06:46)
[2022-12-17] MEDS ORDERED: ONDANSETRON INJ 2 MG/ML 2 ML VIAL IV PRN ×2 (06:46→13:12)
[2022-12-17] MEDS ORDERED: ePHEDrine sulfate 50 MG/ML AMP IV PRN (06:46)
[2022-12-17] MEDS ORDERED: SODIUM CHLORIDE 0.9% PF INJ 10 ML VIAL ONE (06:53)
[2022-12-17] MEDS ORDERED: PROPOFOL IV EMULSION 10 MG/ML 100 ML VIAL IV ONE (06:56)
[2022-12-17] MEDS ORDERED: REMIFENTANIL HCL 1 MG VIAL IV ONE (06:56)
[2022-12-17] MEDS ORDERED: THROMBIN 5000 UNITS KIT ONE (07:05)
[2022-12-17] MEDS ORDERED: VANCOMYCIN HCL 1000MG/20ML VIAL ONE (07:05)
[2022-12-17] MEDS ORDERED: GELATIN SPONGE SZ 100 ONE (07:05)
--- NOTE | 2022-12-17 07:09 | History & Physical Bridge Note ---
Date of Service December 17, 2022 History & Physical Bridge Note I have examined the patient, reviewed the History & Physical and in the interval since the performance of the History & Physical I have noted the following changes of clinical significance: no changes noted
--- NOTE | 2022-12-17 07:36 | History & Physical Report ---
Date of Service December 17, 2022 History of Present Illness Chief Complaint: Arm and leg numbness Primary Care Provider: Mike Oconnor, DO Note: 67-year-old gentleman with a several year history of cervical axial symptoms, then developing upper extremity numbness and tingling in the last 6 to 12 months. He reports having undergone some injections in the cervical spine and these were able to help his symptoms for quite a while but as his symptoms have progressed he has undergone some additional evaluation. 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 He has limited range of motion of the cervical spine at times in certain positions such as flex forward he gets some numbness and tingling in his hands. Exam reveals him to have limited cervical range of motion, around 10 degrees to 15 degrees of extension and flexion on the flexion he does get some slight paresthesias in the upper extremities. [id number] rotation is also limited as a Spurling's maneuver, mostly axial symptoms at those endpoints. Deep tendon reflexes were 0 to trace for biceps and brachial radialis bilaterally but 1/4 for triceps bilaterally and at least 2/4 for the knee reflexes. He had appropriate strength in all groups tested, Tinel's was positive at both elbows to a limited degree not as much at the wrist, Phalen sign was mildly positive. Review of MRI images from [facility] of the cervical spine from September 04, 2022 was performed, as my separate interpretation, this reveals the patient main findings to be at C3-4 where he has severe central stenosis along with foraminal stenosis at this level. He also has some right sided C1-2 foraminal stenosis, C2-3 is relatively unremarkable but C3-4 there is a combination of broad-based disc bulge and spondylosis combination with posterior ligamentous infolding and facet Osteoarthritic changes causing the severe foraminal stenosis. Degenerative changes are at the remaining cervical levels with some disc protrusions but no significant central stenosis and mild to moderate foraminal narrowing more so on the left. 4 views cervical spine AP lateral flexion-extension views reveal the patient have notable osteoarthritic changes throughout the cervical spine, there is limited motion between C4 and C7 on flexion-extension, C3-4 shows some limited motion, but no instability. There are facet changes present. 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 Plan: Today I reviewed the images of her radiographs and MRI with the patient and family member, at this point I recommending anterior cervical decompression at C3-4 level arthrodesis with instrumentation. I explained to them technical details of the surgery noting that this would be addressing the stenosis from the anterior aspect and also help with the foraminal stenosis. The intention of the surgery would be to decompress the canal and help with the stenosis in the foramen is, thereby helping with some of his symptoms but the posterior ligamentous hypertrophy was also discussed noting that there is always a possibility of an additional procedure posteriorly if needed after sometimes been given to make sure the anterior surgery has healed. Discussed with the usual hospital and postoperative course, healing rate complications and other technical details were all discussed and agreed upon, this is includes chance of infection neurologic injury dysphagia need for additional surgery in the case of a nonunion. Discussed was the fact that I think this will address certainly the pain coming from this level though continued pain could still occur from the other arthritic levels in the neck, but certainly we will get an improvement in the upper extremities. I did note to them that consideration might be necessary in the future for EMG nerve conduction study relative to peripheral entrapment, but we will first see how he does with the cervical surgery, they are in agreement with this plan. Ortho Intake Intake: Visit Reasons:NEW/SPINAL STENOSIS/REF [facility] Allergy/AdvReac Type Severity Reaction Status Date / Time latex Allergy Unknown UNSURE Verified 10/08/22 15:23 acetaminophen AdvReac Unknown AVOIDS D/T Verified 10/08/22 15:23 LIVER levalbuterol HCl 1.25 mg/0.5 mL solution for nebulization 1.25 mg inhalation TID PRN Shortness Of Breath 08/05/19 [id number] tablet (Multivitamin 50 Plus tablet) 1 tab PO QAM 08/05/19 albuterol sulfate 90 mcg/actuation aerosol inhaler 1 puff inhalation Q6H PRN Shortness Of Breath #18 grams 01/31/21 CPAP Supplies #1 ea 08/02/21 diclofenac sodium 1 % topical gel 2 g topical QID PRN pain, moderate #100 grams 03/13/22 diazepam 5 mg tablet (Valium) 5 mg PO TID PRN muscle spasm #90 tabs 04/18/22 levothyroxine 125 mcg tablet 125 mcg PO QAM #90 tabs 05/14/22 armodafinil 250 mg tablet (Nuvigil) 250 mg PO QAM #90 tabs 05/30/22 lisinopril 20 mg-hydrochlorothiazide 25 mg tablet 1 tab PO BID #180 tabs 06/10/22 metoprolol tartrate 50 mg tablet 50 mg PO BID #180 tabs 07/02/22 spironolactone 25 mg tablet 12.5 mg PO DAILY #30 tabs 09/12/22 aspirin 81 mg tablet,delayed release 81 mg PO HS 09/16/22 fluticasone 100 mcg-salmeterol 50 mcg/dose blistr powdr for inhalation 1 inh inhalation BID 09/16/22 fluticasone propionate 50 mcg/actuation nasal spray,suspension 1 spray intranasa l BID 09/16/22 levocetirizine 5 mg tablet 5 mg PO HS 09/16/22 omega-3 fatty acids 1,000 mg capsule 1,000 mg PO HS 09/16/22 amlodipine 10 mg tablet 5 mg PO BID #90 tabs 09/25/22 gabapentin 300 mg capsule 300 mg PO DAILY #90 caps 10/01/22 oxycodone 20 mg tablet 20 mg PO QID PRN pain 30 days #120 tabs 10/01/22 clonidine HCl 0.1 mg tablet 0.1 mg PO TID PRN hypertensive emergency #90 tabs 10/07/22 prednisone 20 mg tablet 20 mg PO DAILY #30 tabs 10/07/22 Home Medications Medication Instructions Recorded Confirmed levalbuterol HCl 1.25 mg/0.5 mL 1.25 mg inhalation TID PRN 08/05/19 10/08/22 solution for nebulization Shortness Of Breath [id number] 1 tab PO QAM 08/05/19 10/08/22 tablet (Multivitamin 50 Plus tablet) aspirin 81 mg tablet,delayed 81 mg PO HS 09/16/22 10/08/22 release fluticasone 100 mcg-salmeterol 50 1 inh inhalation BID 09/16/22 10/08/22 mcg/dose blistr powdr for inhalation fluticasone propionate 50 1 spray intranasal BID 01/30/23 02/21/23 mcg/actuation nasal spray,suspension levocetirizine 5 mg tablet 5 mg PO HS 09/16/22 10/08/22 omega-3 fatty acids 1,000 mg 1,000 mg PO HS 09/16/22 10/08/22 capsule Prescriptions Medication Instructions Recorded albuterol sulfate 90 mcg/actuation 1 puff inhalation Q6H PRN 01/31/21 aerosol inhaler Shortness Of Breath #18 grams CPAP Supplies #1 ea 08/02/21 diclofenac sodium 1 % topical gel 2 g topical QID PRN pain, moderate 03/13/22 #100 grams diazepam 5 mg tablet (Valium) 5 mg PO TID PRN muscle spasm #90 04/18/22 tabs levothyroxine 125 mcg tablet 125 mcg PO QAM #90 tabs 05/14/22 armodafinil 250 mg tablet (Nuvigil) 250 mg PO QAM #90 tabs 05/30/22 lisinopril 20 1 tab PO BID #180 tabs 06/10/22 mg-hydrochlorothiazide 25 mg tablet metoprolol tartrate 50 mg tablet 50 mg PO BID #180 tabs 07/02/22 spironolactone 25 mg tablet 12.5 mg PO DAILY #30 tabs 09/12/22 amlodipine 10 mg tablet 5 mg PO BID #90 tabs 09/25/22 gabapentin 300 mg capsule 300 mg PO DAILY #90 caps 10/01/22 oxycodone 20 mg tablet 20 mg PO QID PRN pain 30 days #120 10/01/22 tabs clonidine HCl 0.1 mg tablet 0.1 mg PO TID PRN hypertensive 10/07/22 emergency #90 tabs prednisone 20 mg tablet 20 mg PO DAILY #30 tabs 10/07/22 PFSH PFSH: Medical History(Updated 10/08/22 @ 16:24 by Elder Helms MD) Cervicalgia Chronic obstructive pulmonary disease Chronic pain Degenerative cervical spinal stenosis Hx of hepatitis C Hypertension Opioid dependence Osteoarthritis Sleep apnea Slow to wake up after anesthesia Thoracic back pain Surgical History History of bronchoscopy History of colonoscopy History of surgery History of total hip replacement Hx of cardiac cath Hx of wisdom tooth extraction Family History Father Family history of diabetes mellitusHeart diseaseHypertensionMyocardial infarctionDiabetesMother FHx: ovarian cancerCancerDenies family history of Ovarian cancerProstate cancer Social History(Updated 09/12/22 @ 11:18 by ALINE Tello) Smoking Status: Former smoker Tobacco Type: Pipe Age Started Using Tobacco: 16; Age Quit Using Tobacco: 28; Second Hand Exposure: Yes (SOCIALLY); Hx Alcohol Use: Yes Alcohol type: hard liquor Alcohol Intake Frequency: Monthly or Less Hx Substance Use: No Preferred Language: Maldivian Communication Ability: Effective Visual Impairment: No Limitations Hearing Ability: Normal Cook Chill Technician Required: No Beliefs That Will Affect Care: None marital status: Current Living Situation: Spouse current occupational status: retired How many Children do You have: 2 Feels Safe at Home: Yes Childhood Exposure to Second-Hand Smoke: Yes Diet Comment: regular caffeine: Yes during the past year weight has: remained stable Dental Care, Regularly: Yes Physical Activity Frequency: Daily Seatbelt Use: always Sunscreen Use: Yes Assistive Devices: Glasses Plan Surgery Spine Procedure Cervical Codes: ACDF 1 ST LEVEL (BELOW C2) (96049) Coding Level of Care Code 18640 Office/Outpt Visit, New Diagnoses Cervicalgia M54.2 Stenosis of cervical spine with myelopathy M48.02; G99.2 Degenerative cervical spinal stenosis M48.02 Review of Systems All systems reviewed & are unremarkable except as noted in HPI & below. Allergies Allergy/AdvReac Type Severity Reaction Status Date / Time latex Allergy Unknown Rash at Verified 12/17/22 06:00 injection site (told d/t latex), pt uses latex glove acetaminophen AdvReac Unknown Avoids d/t Verified 12/17/22 06:00 liver Home Medications Medication Instructions Recorded Confirmed Type levalbuterol HCl 1.25 mg/0.5 mL 1.25 mg inhalation TID PRN 08/05/19 12/17/22 History solution for nebulization Shortness Of Breath [id number] 1 tab PO QAM 08/05/19 12/17/22 History tablet (Multivitamin 50 Plus tablet) albuterol sulfate 90 mcg/actuation 1 puff inhalation Q6H PRN 01/31/21 12/17/22 Rx aerosol inhaler Shortness Of Breath #18 grams CPAP Supplies #1 ea 08/02/21 12/06/22 Rx diclofenac sodium 1 % topical gel 2 g topical QID PRN pain, moderate 03/13/22 12/17/22 Rx #100 grams armodafinil 250 mg tablet (Nuvigil) 250 mg PO QAM #90 tabs 05/30/22 12/17/22 Rx metoprolol tartrate 50 mg tablet 50 mg PO BID #180 tabs 07/02/22 12/17/22 Rx diazepam 5 mg tablet (Valium) 5 mg PO TID PRN muscle spasm #90 11/04/22 12/17/22 Rx tabs levothyroxine 125 mcg tablet 125 mcg PO QAM #90 tabs 11/13/22 12/17/22 Rx levocetirizine 5 mg tablet 5 mg PO DAILY #30 tabs 11/18/22 12/17/22 Rx fluticasone 100 mcg-salmeterol 50 1 inh inhalation BID PRN Shortness 11/28/22 12/17/22 History mcg/dose blistr powdr for Of Breath inhalation fluticasone propionate 50 1 spray intranasal BID PRN Allergy 11/28/22 12/17/22 History mcg/actuation nasal Symptoms spray,suspension lisinopril 20 1 tab PO BID #180 tabs 12/02/22 12/17/22 Rx mg-hydrochlorothiazide 25 mg tablet oxycodone 20 mg tablet 20 mg PO QID PRN pain 30 days #120 12/09/22 12/17/22 Rx tabs clonidine HCl 0.1 mg tablet 0.1 mg PO TID PRN hypertensive 12/13/22 12/17/22 Rx emergency #90 tabs Past Med/Surg History Medical History Cervicalgia Chronic obstructive pulmonary disease Chronic pain Daytime somnolence Degenerative cervical spinal stenosis Diverticulosis Hx of hepatitis C Hypertension Osteoarthritis Sleep apnea Thoracic back pain Surgical History History of bronchoscopy History of colonoscopy History of surgery History of total hip replacement Hx of cardiac cath Hx of wisdom tooth extraction Slow to wake up after anesthesia Family History Father Family history of diabetes mellitus Heart disease Hypertension Myocardial infarction Diabetes Mother FHx: ovarian cancer Cancer Denies family history of Ovarian cancer Prostate cancer Social History Smoking Status: Former smoker Tobacco Type: Pipe Age Started Using Tobacco: 16; Age Quit Using Tobacco: 28; Smoking End Date: Quit many years ago; Second Hand Exposure: Yes; Do You Dip or Chew Tobacco: No; Tobacco Cessation Education Requested by Patient: No Hx Alcohol Use: Yes Alcohol type: hard liquor Alcohol Intake Frequency: Monthly or Less Hx Substance Use: No Preferred Language: Maldivian Communication Ability: Effective Visual Impairment: No Limitations Hearing Ability: Normal Cook Chill Technician Required: No Beliefs That Will Affect Care: None marital status: Current Living Situation: Spouse current occupational status: retired How many Children do You have: 2 Feels Safe at Home: Yes Safety Concerns: Feels Safe At This Time Childhood Exposure to Second-Hand Smoke: Yes Diet: regular Diet Comment: regular caffeine: Yes during the past year weight has: remained stable Dental Care, Regularly: Yes Physical Activity Frequency: Daily Seatbelt Use: always Sunscreen Use: Yes Assistive Devices: Glasses Results & Data Results & Data Vital Signs (Past 12 Hours) Vital Signs Temp Pulse Resp BP Pulse Ox O2 Del Method 12/17/22 06:07 Room Air, CPAP 12/17/22 06:07 36.6 C 62 18 170/88 H 96 Room Air
--- NOTE | 2022-12-17 07:38 | History & Physical Report ---
Date of Service December 17, 2022 History of Present Illness Primary Care Provider: Mike Oconnor, DO Note: 67-year-old gentleman with a several year history of cervical axial symptoms, then developing upper extremity numbness and tingling in the last 6 to 12 months. He reports having undergone some injections in the cervical spine and these were able to help his symptoms for quite a while but as his symptoms have progressed he has undergone some additional evaluation. 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 He has limited range of motion of the cervical spine at times in certain positions such as flex forward he gets some numbness and tingling in his hands. Exam reveals him to have limited cervical range of motion, around 10 degrees to 15 degrees of extension and flexion on the flexion he does get some slight paresthesias in the upper extremities. Kesh-dh-desd rotation is also limited as a Spurling's maneuver, mostly axial symptoms at those endpoints. Deep tendon reflexes were 0 to trace for biceps and brachial radialis bilaterally but 1/4 for triceps bilaterally and at least 2/4 for the knee reflexes. He had appropriate strength in all groups tested, Tinel's was positive at both elbows to a limited degree not as much at the wrist, Phalen sign was mildly positive. Review of MRI images from [facility] of the cervical spine from September 04, 2022 was performed, as my separate interpretation, this reveals the patient main findings to be at C3-4 where he has severe central stenosis along with foraminal stenosis at this level. He also has some right sided C1-2 foraminal stenosis, C2-3 is relatively unremarkable but C3-4 there is a combination of broad-based disc bulge and spondylosis combination with posterior ligamentous infolding and facet Osteoarthritic changes causing the severe foraminal stenosis. Degenerative changes are at the remaining cervical levels with some disc protrusions but no significant central stenosis and mild to moderate foraminal narrowing more so on the left. 4 views cervical spine AP lateral flexion-extension views reveal the patient have notable osteoarthritic changes throughout the cervical spine, there is limited motion between C4 and C7 on flexion-extension, C3-4 shows some limited motion, but no instability. There are facet changes present. 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 Plan: Today I reviewed the images of her radiographs and MRI with the patient and family member, at this point I recommending anterior cervical decompression at C3-4 level arthrodesis with instrumentation. I explained to them technical details of the surgery noting that this would be addressing the stenosis from the anterior aspect and also help with the foraminal stenosis. The intention of the surgery would be to decompress the canal and help with the stenosis in the foramen is, thereby helping with some of his symptoms but the posterior ligamentous hypertrophy was also discussed noting that there is always a possibility of an additional procedure posteriorly if needed after sometimes been given to make sure the anterior surgery has healed. Discussed with the usual hospital and postoperative course, healing rate complications and other technical details were all discussed and agreed upon, this is includes chance of infection neurologic injury dysphagia need for additional surgery in the case of a nonunion. Discussed was the fact that I think this will address certainly the pain coming from this level though continued pain could still occur from the other arthritic levels in the neck, but certainly we will get an improvement in the upper extremities. I did note to them that consideration might be necessary in the future for EMG nerve conduction study relative to peripheral entrapment, but we will first see how he does with the cervical surgery, they are in agreement with this plan. Ortho Intake Intake: Visit Reasons:NEW/SPINAL STENOSIS/REF [facility] Allergy/AdvReac Type Severity Reaction Status Date / Time latex Allergy Unknown UNSURE Verified 10/08/22 15:23 acetaminophen AdvReac Unknown AVOIDS D/T Verified 10/08/22 15:23 LIVER levalbuterol HCl 1.25 mg/0.5 mL solution for nebulization 1.25 mg inhalation TID PRN Shortness Of Breath 08/05/19 khuetlwzumke-yzimnqtv-bfhzod tablet (Multivitamin 50 Plus tablet) 1 tab PO QAM 08/05/19 albuterol sulfate 90 mcg/actuation aerosol inhaler 1 puff inhalation Q6H PRN Shortness Of Breath #18 grams 01/31/21 CPAP Supplies #1 ea 08/02/21 diclofenac sodium 1 % topical gel 2 g topical QID PRN pain, moderate #100 grams 03/13/22 diazepam 5 mg tablet (Valium) 5 mg PO TID PRN muscle spasm #90 tabs 04/18/22 levothyroxine 125 mcg tablet 125 mcg PO QAM #90 tabs 05/14/22 armodafinil 250 mg tablet (Nuvigil) 250 mg PO QAM #90 tabs 05/30/22 lisinopril 20 mg-hydrochlorothiazide 25 mg tablet 1 tab PO BID #180 tabs 06/10/22 metoprolol tartrate 50 mg tablet 50 mg PO BID #180 tabs 07/02/22 spironolactone 25 mg tablet 12.5 mg PO DAILY #30 tabs 09/12/22 aspirin 81 mg tablet,delayed release 81 mg PO HS 09/16/22 fluticasone 100 mcg-salmeterol 50 mcg/dose blistr powdr for inhalation 1 inh inhalation BID 09/16/22 fluticasone propionate 50 mcg/actuation nasal spray,suspension 1 spray intranasal BID 09/16/22 levocetirizine 5 mg tablet 5 mg PO HS 09/16/22 omega-3 fatty acids 1,000 mg capsule 1,000 mg PO HS 09/16/22 amlodipine 10 mg tablet 5 mg PO BID #90 tabs 09/25/22 gabapentin 300 mg capsule 300 mg PO DAILY #90 caps 10/01/22 oxycodone 20 mg tablet 20 mg PO QID PRN pain 30 days #120 tabs 10/01/22 clonidine HCl 0.1 mg tablet 0.1 mg PO TID PRN hypertensive emergency #90 tabs 10/07/22 prednisone 20 mg tablet 20 mg PO DAILY #30 tabs 10/07/22 Home Medications Medication Instructions Recorded Confirmed levalbuterol HCl 1.25 mg/0.5 mL 1.25 mg inhalation TID PRN 08/05/19 10/08/22 solution for nebulization Shortness Of Breath zwisgwtimykh-ulymmmte-iselpw 1 tab PO QAM 08/05/19 10/08/22 tablet (Multivitamin 50 Plus tablet) aspirin 81 mg tablet,delayed 81 mg PO HS 09/16/22 10/08/22 release fluticasone 100 mcg-salmeterol 50D 1 inh inhalation BID 09/16/22 10/08/22 mcg/dose blistr powdr for inhalation fluticasone propionate 50 1 spray intranasal BID 09/16/22 10/08/22 mcg/actuation nasal spray,suspension levocetirizine 5 mg tablet 5 mg PO HSB 09/16/22 10/08/22 omega-3 fatty acids 1,000 mg 1,000 mg PO HS 09/16/22 10/08/22 capsule Prescriptions Medication Instructions Recorded albuterol sulfate 90 mcg/actuation 1 puff inhalation Q6H PRN 01/31/21 aerosol inhaler Shortness Of Breath #18 grams CPAP Supplies #1 ea 08/02/21 diclofenac sodium 1 % topical gel 2 g topical QID PRN pain, moderate 03/13/22 #100 grams diazepam 5 mg tablet (Valium) 5 mg PO TID PRN muscle spasm #90 04/18/22 tabs levothyroxine 125 mcg tablet 125 mcg PO QAM #90 tabs 05/14/22 armodafinil 250 mg tablet (Nuvigil) 250 mg PO QAM #90 tabs 05/30/22 lisinopril 20 1 tab PO BID #180 tabs 06/10/22 mg-hydrochlorothiazide 25 mg tablet metoprolol tartrate 50 mg tablet 50 mg PO BID #180 tabs 07/02/22 spironolactone 25 mg tablet 12.5 mg PO DAILY #30 tabs 09/12/22 amlodipine 10 mg tablet 5 mg PO BID #90 tabs 09/25/22 gabapentin 300 mg capsule 300 mg PO DAILY #90 caps 10/01/22 oxycodone 20 mg tablet 20 mg PO QID PRN pain 30 days #120 10/01/22 tabs clonidine HCl 0.1 mg tablet 0.1 mg PO TID PRN hypertensive 10/07/22 emergency #90 tabs prednisone 20 mg tablet 20 mg PO DAILY #30 tabs 10/07/22 PFSH PFSH: Medical History(Updated 10/08/22 @ 16:24 by Elder Helms MD) Cervicalgia Chronic obstructive pulmonary disease Chronic pain Degenerative cervical spinal stenosis Hx of hepatitis C Hypertension Opioid dependence Osteoarthritis Sleep apnea Slow to wake up after anesthesia Thoracic back pain Surgical History History of bronchoscopy History of colonoscopy History of surgery History of total hip replacement Hx of cardiac cath Hx of wisdom tooth extraction Family History Father Family history of diabetes mellitusHeart diseaseHypertensionMyocardial infarctionDiabetesMother FHx: ovarian cancerCancerDenies family history of Ovarian cancerProstate cancer Social History(Updated 09/12/22 @ 11:18 by ALINE Tello) Smoking Status: Former smoker Tobacco Type: Pipe Age Started Using Tobacco: 16; Age Quit Using Tobacco: 28; Second Hand Exposure: Yes (SOCIALLY); Hx Alcohol Use: Yes Alcohol type: hard liquor Alcohol Intake Frequency: Monthly or Less Hx Substance Use: No Preferred Language: Lithuanian Communication Ability: Effective Visual Impairment: No Limitations Hearing Ability: Normal Meat Team Member Required: No Beliefs That Will Affect Care: None marital status: Current Living Situation: Spouse current occupational status: retired How many Children do You have: 2 Feels Safe at Home: Yes Childhood Exposure to Second-Hand Smoke: Yes Diet Comment: regular caffeine: Yes during the past year weight has: remained stable Dental Care, Regularly: Yes Physical Activity Frequency: Daily Seatbelt Use: always Sunscreen Use: Yes Assistive Devices: Glasses Plan Surgery Spine Procedure Cervical Codes: ACDF 1 ST LEVEL (BELOW C2) (64340) Coding Level of Care Code 72880 Office/Outpt Visit, New Diagnoses Cervicalgia M54.2 Stenosis of cervical spine with myelopathy M48.02; G99.2 Degenerative cervical spinal stenosis M48.02 Review of Systems All systems reviewed & are unremarkable except as noted in HPI & below. Allergies Allergy/AdvReac Type Severity Reaction Status Date / Time latex Allergy Unknown Rash at Verified 12/17/22 06:00 injection site (told d/t latex), pt uses latex glove acetaminophen AdvReac Unknown Avoids d/t Verified 12/17/22 06:00 liver Home Medications Medication Instructions Recorded Confirmed Type levalbuterol HCl 1.25 mg/0.5 mL 1.25 mg inhalation TID PRN 08/05/19 12/17/22 History solution for nebulization Shortness Of Breath plfcseyzedds-aspgrhir-fpsocd 1 tab PO QAM 08/05/19 12/17/22 History tablet (Multivitamin 50 Plus tablet) albuterol sulfate 90 mcg/actuation 1 puff inhalation Q6H PRN 01/31/21 12/17/22 Rx aerosol inhaler Shortness Of Breath #18 grams CPAP Supplies #1 ea 08/02/21 12/06/22 Rx diclofenac sodium 1 % topical gel 2 g topical QID PRN pain, moderate 03/13/22 12/17/22 Rx #100 grams armodafinil 250 mg tablet (Nuvigil) 250 mg PO QAM #90 tabs 05/30/22 12/17/22 Rx metoprolol tartrate 50 mg tablet 50 mg PO BID #180 tabs 07/02/22 12/17/22 Rx diazepam 5 mg tablet (Valium) 5 mg PO TID PRN muscle spasm #90 11/04/22 12/17/22 Rx tabs levothyroxine 125 mcg tablet 125 mcg PO QAM #90 tabs 11/13/22 12/17/22 Rx levocetirizine 5 mg tablet 5 mg PO DAILY #30 tabs 11/18/22 12/17/22 Rx fluticasone 100 mcg-salmeterol 50 1 inh inhalation BID PRN Shortness 11/28/22 12/17/22 History mcg/dose blistr powdr for Of Breath inhalation fluticasone propionate 50 1 spray intranasal BID PRN Allergy 11/28/22 12/17/22 History mcg/actuation nasal Symptoms spray,suspension lisinopril 20 1 tab PO BID #180 tabs 12/02/22 12/17/22 Rx mg-hydrochlorothiazide 25 mg tablet oxycodone 20 mg tablet 20 mg PO QID PRN pain 30 days #120 12/09/22 12/17/22 Rx tabs clonidine HCl 0.1 mg tablet 0.1 mg PO TID PRN hypertensive 12/13/22 12/17/22 Rx emergency #90 tabs Past Med/Surg History Medical History Cervicalgia Chronic obstructive pulmonary disease Chronic pain Daytime somnolence Degenerative cervical spinal stenosis Diverticulosis Hx of hepatitis C Hypertension Osteoarthritis Sleep apnea Thoracic back pain Surgical History History of bronchoscopy History of colonoscopy History of surgery History of total hip replacement Hx of cardiac cath Hx of wisdom tooth extraction Slow to wake up after anesthesia Family History Father Family history of diabetes mellitus Heart disease Hypertension Myocardial infarction Diabetes Mother FHx: ovarian cancer Cancer Denies family history of Ovarian cancer Prostate cancer Social History Smoking Status: Former smoker Tobacco Type: Pipe Age Started Using Tobacco: 16; Age Quit Using Tobacco: 28; Smoking End Date: Quit many years ago; Second Hand Exposure: Yes; Do You Dip or Chew Tobacco: No; Tobacco Cessation Education Requested by Patient: No Hx Alcohol Use: Yes Alcohol type: hard liquor Alcohol Intake Frequency: Monthly or Less Hx Substance Use: No Preferred Language: Lithuanian Communication Ability: Effective Visual Impairment: No Limitations Hearing Ability: Normal Meat Team Member Required: No Beliefs That Will Affect Care: None marital status: Current Living Situation: Spouse current occupational status: retired How many Children do You have: 2 Feels Safe at Home: Yes Safety Concerns: Feels Safe At This Time Childhood Exposure to Second-Hand Smoke: Yes Diet: regular Diet Comment: regular caffeine: Yes during the past year weight has: remained stable Dental Care, Regularly: Yes Physical Activity Frequency: Daily Seatbelt Use: always Sunscreen Use: Yes Assistive Devices: Glasses Results & Data Results & Data Vital Signs (Past 12 Hours) Vital Signs Temp Pulse Resp BP Pulse Ox O2 Del Method 12/17/22 06:07 Room Air, CPAP 12/17/22 06:07 36.6 C 62 18 170/88 H 96 Room Air
[2022-12-17] MEDS ORDERED: GLYCOPYRROLATE 0.2 MG/ML VIAL ONE (07:45)
[2022-12-17] MEDS ORDERED: ePHEDrine sulfate 50 MG/ML AMP ONE (08:06)
[2022-12-17] MEDS ORDERED: ePHEDrine sulfate 50 MG/ML SYR ONE (08:06)
[2022-12-17] MEDS ORDERED: ROCURONIUM BROMIDE 10 MG/ML 5 ML VIAL IV ONE (08:44)
[2022-12-17] MEDS ORDERED: FLOSEAL HEMOSTATIC MATRIX 5ML TOP ONE (10:43)
--- NOTE | 2022-12-17 11:15 | Post Operative Brief Note ---
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 I identified the patient and participated in the time-out.: Yes Procedure Operation Date: 12/17/22 07:15 Actual Procedures p Anterior Cervical Decompression, Fusion, Instrumentation C3-4, Spinal Cord Monitoring(Not Applicable) - Elder Helms MD Surgeon Elder Helms MD Parole Hearing Officer none Estimated Blood Loss 20 Findings Consistent with Post-Op Diagnosis Specimens Specimen Description: None per surgeon
[2022-12-17] MEDS: fentaNYL citrate PF 100 MCG/2 ML VIAL IV PRN ×4 (11:49→12:04)
--- NOTE | 2022-12-17 11:54 | Anesthesiology Progress Note ---
Date of Service December 17, 2022 Anesthesia Post Procedure Vital Signs Vital Signs: Temp Pulse Pulse Resp BP Pulse Ox O2 Del Method 12/17/22 11:45 70 14 121/82 98 Room Air 12/17/22 11:35 70 15 137/77 100 Oxymask 12/17/22 11:25 97.2 F L 70 15 141/67 H 98 Oxymask 12/17/22 11:15 97.2 F L 78 19 153/64 H 98 Oxymask 12/17/22 06:07 Room Air, CPAP 12/17/22 06:07 97.9 F 62 18 170/88 H 96 Room Air O2 Flow Rate 12/17/22 11:45 12/17/22 11:35 6 12/17/22 11:25 6 12/17/22 11:15 6 12/17/22 06:07 12/17/22 06:07 Pain Intensity Neck: Pain Intensity: 7 Transfer of Care Handoff Completed per policy Notes Mental Status: alert / awake / arousable and participated in evaluation Patient Amnestic to Procedure: Yes Nausea / Vomiting: adequately controlled Pain: adequately controlled Airway Patency, RR, SpO2: stable & adequate BP & HR: stable & adequate Hydration State: stable & adequate Anesthetic Complications: no major complications apparent and Pt Satisfied with anesthetic care
[2022-12-17] MEDS ORDERED: LEVALBUTEROL 1.25MG/0.5ML NEB INH PRN (13:12)
[2022-12-17] MEDS ORDERED: ACETAMINOPHEN 500 MG TAB PO PRN (13:12)
[2022-12-17] MEDS ORDERED: NALOXONE HCL 0.4 MG/1 ML VIAL/CARP IV PRN (13:12)
[2022-12-17] MEDS ORDERED: LORazepam 2 MG/1 ML VIAL IV PRN (13:12)
[2022-12-17] MEDS ORDERED: METOCLOPRAMIDE HCL INJ 5 MG/ML 2 ML VIAL IV PRN (13:12)
[2022-12-17] MEDS ORDERED: DO NOT ADMINISTER FLU VACCINE PRN (13:12)
[2022-12-17] MEDS ORDERED: diphenhydrAMINE Capsule 25 MG CAP PO PRN (13:12)
[2022-12-17] MEDS ORDERED: FAMOTIDINE 20 MG TAB PO PRN (13:12)
[2022-12-17] MEDS ORDERED: SOD PHOSPHATE/SOD BIPHOSPHATE ENEMA 132 ML BTL PR PRN (13:12)
[2022-12-17] MEDS ORDERED: LACTATED RINGER'S 1,000 ML IV SCH (13:12)
[2022-12-17] MEDS ORDERED: ACETAMINOPHEN 1,000 MG/100 ML VIAL IV PRN (13:12)
[2022-12-17] MEDS ORDERED: PROMETHAZINE HCL 12.5 MG in SODIUM CHLORIDE 0.9% 50 ML IV PRN (13:12)
[2022-12-17] MEDS ORDERED: ALBUTEROL HFA 8 GM INHALER INH PRN (13:12)
[2022-12-17] MEDS ORDERED: dexAMETHasone 8 MG in SYRINGE 0 ML IV PRN (13:12)
[2022-12-17] MEDS ORDERED: LORazepam 0.5 MG TAB PO PRN (13:12)
[2022-12-17] MEDS ORDERED: ALUMINUM/MAGNESIUM SUSP 30 ML UDC PO PRN (13:12)
[2022-12-17] MEDS ORDERED: MAGNESIUM HYDROXIDE SUSP 30 ML UDC PO PRN (13:12)
[2022-12-17] MEDS ORDERED: diazePAM 5 MG TABLET PO PRN (13:12)
[2022-12-17] MEDS ORDERED: hydrOXYzine HCl 25 MG TAB PO PRN (13:12)
[2022-12-17] MEDS ORDERED: bisacodyL 10 MG SUPP PR PRN (13:12)
[2022-12-17] MEDS ORDERED: cloNIDine HCL 0.1 MG TAB PO PRN (13:12)
[2022-12-17] MEDS ORDERED: ONDANSETRON 4 MG OD TAB PO PRN (13:12)
[2022-12-17] MEDS ORDERED: RACEPINEPHRINE 2.25% NEBU SOLN 0.5 ML VIAL INH PRN (13:12)
[2022-12-17] MEDS ORDERED: FLUTICASONE/SALMETEROL 100/50 (ADVAIR) 14 PUFF/1 INHALER INH PRN (13:12)
[2022-12-17] MEDS ORDERED: DO NOT ADMINISTER PNEUMOCOCCAL VACCINE PRN (13:12)
--- NOTE | 2022-12-17 13:13 | Fluoroscopy Report ---
FL cervical 2-3V CLINICAL HISTORY: ACDF C3-4 COMPARISON STUDY: Cervical spine 10/08/2022. FLUOROSCOPY TIME: 1 minute FLUOROSCOPY IMAGES: 4 Ka,r: 8.2 mGy FINDINGS: Anterior cervical discectomy and fusion at C3-C4. The hardware appears intact. IMPRESSION: Fluoroscopic assistance as above. ACT 112: Negative or not required by law. Electronically signed by: Blayne Winters M.D. 12/17/2022 1:12 PM
--- NOTE | 2022-12-17 15:20 | Operative Report ---
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 I identified the patient and participated in the time-out.: Yes Procedure Operation Date: 12/17/22 07:15 Actual Procedures p Anterior Cervical Decompression, Fusion, Instrumentation C3-4, Spinal Cord Monitoring(Not Applicable) - Elder Helms MD Surgeon Elder Helms MD Batcher Operator none Estimated Blood Loss 20 Findings Consistent with Post-Op Diagnosis Specimens none Description of Procedure 1. C3-4 anterior cervical discectomy/decompression 2. C3-4 anterior interbody arthrodesis 3. Insertion of intervertebral cage, Nuvasive Cohere 4. Anterior cervical instrumentation, Nuvasive ACP 5. Utilization of operative microscope for decompression, fluoroscopy for placement of intervertebral cage and anterior instrumentation Patient was taken the operating room after adequate anesthesia was carefully p ositioned supine on the OSI flat top table. After doing so patient then underwent positioning which included a preprep of the cervical area followed by then positioning for alignment and approach to the C3-4 level. Fluoroscopy was brought in, and marked for the area of the incision followed by then prepping and draping. I began the procedure with a Transverse incision along the anterolateral aspect left side for the C3-4 level. Carefully dissecting down past the medial aspect of the sternocleidomastoid, I was able to then eventually approached the C3-4 level, this level was then marked and confirmed using fluoroscopy. I then mobilized the soft tissues in the immediate area followed by then insertion of distractor pins at C3 and C4 using fluoroscopic control. Retractors were then set, and then began the procedure using operative microscope with incising the anterior annulus followed by a thorough discectomy of the disc space with removal of cartilage from the endplates. This process continued until a thorough discectomy had been performed, at this point I then moved towards the posterior aspect of the interspace for the decompression. High-speed bur was then utilized to thin the overhanging spondylosis, after doing so I carefully mobilized the remaining spondylosis posterior longitudinal ligament and remaining annulus decompressing the segment across the interspace down to the dura. With this now completed, I then moved ahead with undergoing trials for the cage spacer, this was then obtained from Friday, and then packed with demineralized bone matrix. I then tapped this under fluoroscopic control into position. The distractor pins were then removed, and I then obtained one of the plates from Friday, this was then inserted with 15 mm screws with excellent purchase and placement. Final evaluation revealed no evidence of any bleeding, the area was dry, I then inserted vancomycin powder. Final images were obtained, closed the operative site with interrupted 3-0 Vicryl sutures followed by benzoin and Steri-Strips. Sterile dressing was applied, the patient was taken recovery room Saturday condition. I attest to the content of the Intraoperative Record and any orders documented therein. Any exceptions are noted below.
[2022-12-17] MEDS: oxyCODONE HCL IR 5 MG TAB (IMMEDIATE RELEASE) PO PRN ×2 (16:20→22:43)
[2022-12-17] MEDS: ceFAZolin 1000MG 1,000 MG/7.5 ML SYR IV SCH (16:22)
--- NOTE | 2022-12-17 17:02 | Hospitalist Consultation ---
Date of Consultation December 17, 2022 Assessment & Plan (1) Status post cervical spinal fusion: -Currently afebrile, hemodynamically stable, and stable on 2L NC -Analgesia, DVT PPX, IV fluids, and perioperative abx per the primary team -No reported intraoperative complications -Adding AM CBC and BMP, we will follow -Thank you for allowing us to participate in the care of the patient, please reach out with any questions or concerns -Medicine will continue to follow (2) Urinary retention: -Patient was bladder scanned earlier for 650 cc, initially only had 200 cc of urine output, but has now had a total of 550 cc -Patient denies a previous hx of urinary retention and feels the need to urinate during the exam -We will give his lisinopril-HCTZ early and see if this helps, if he is still retaining we will need to straight cath and will start flomax -Spoke with the patient and his regarding the plan, the ptient is in agreement with straight cath if needed to avoid infection/EUSEBIO (3) Chronic obstructive pulmonary disease: -Was on 2L NC S/P procedure -Is not SOB and lungs sounds clear -Likely due to anesthesia and hx of DELONTE + COPD -Adjust oxygen orders to keep SpO2 between 88-92%, continue incentive spirometry -Patient is no longer using HS CPAP and would not use at this time with he recent cervical spine procedure, may need PRN O2 while sleeping (4) Hyperglycemia: -Patient with a hx of hyperglycemia listed on his PMH -Not currently on an antihyperglycemic regimen outpatient -Last Hgb A1c was 6.1 as of 01/07/22 -Will monitor BSG ACHS for now, goal is 110-140 -Will start a CF of 50 ACHS -Adjust regimen as needed (5) Hypertension: -Stable -Will give his Lisinopril-HCTZ early to see if it helps with his urinary retention -Continue metoprolol -Also has prn Clonidine ordered as per his home dose for systolic BP > 150 mmhg and/or diastolic BP > 90 mmhg (6) Sleep apnea: -Not currently using HS CPAP -May need HS O2, conitnue to monitor (7) Hypothyroidism: -Continue levothyroxine Plan The patient was discussed with Dr. Kellogg at the time of the admission Supervising Physician Co-Signing Physician Notes Patient seen and examined, chart reviewed, case discussed with Kaushik Dougherty PA-C and I agree with the assessment and plan as above except as otherwise noted Labs and images reviewed Patient is seen at the bedside. He is s/p cervical spine fusion. He is seen at the bedside with his present He reports he feels well, but has had difficulty PNP reports that he feels to be just get up to go to the bathroom he could be 5, but has not yet done this. Initially had 650 cc on bladder scan, since that time had 3 voids of 200 cc and output. Did discuss that urinary retention can be common postoperatively, but persistent retention can cause kidney injury and damage. Reasonable since patient is starting to void to accommodate most comfortable voiding practices, and trials of voiding. If he still has PVR greater than 350, recommend straight cath to which patient expresses an understanding of. Otherwise breathing is stable, patient is having no numbness/tingling at time of visit in his arms. Agree with assessment and management as above. History of Present Illness Reason for Consultation: Post-op medical management and urinary retention Requesting Physician: Elder Helms MD Attending Physician: Dr. Deshaun Kellogg History of Present Illness Budtamela is a 67 y/o M w/ PMHx of asthma, DELONTE, DDD w/ C-spinal stenosis, DJD R hip s/p TIMOTHY, hyperglycemia, COPD, s/p PCTA w/o EVAN, and HTN who presented to the [facility] OR on 12/17/22 for Anterior Cervical Decompression, Fusion, Instrumentation C3-4 and Spinal Cord Monitoring with Dr. Elder Helms. Per review of his vitals, he has been on 2L NC since the procedure but has otherwise been stable. Per the operative report, EBL was listed as 20 CC, anesthesia type and intraoperative complications were not listed. Per report from nursing staff, the patient had been bladder scanned for 650 cc but only voided 200 cc; he was refusing straight cath or Andres cath insertion prior to my exam. At the time of the exam the patient was sitting in bed in no acute distress with his sitting bedside. He has minimal pain at the procedure site at this time, his only other complaint is that he is urinating frequently at this time. He denies dysuria and hematuria. Per the nursing staff, he has voided a total of 550 cc since arriving to the floor. The patient denies a previous history of issues with urination or BPH. He denies recent fever, chills, chest pain, SOB, abd pain, nausea, vomiting, diarrhea, LE swelling, recent trauma, and new weakness or paresthesias. When asked, he states that he has not been using his HS CPAP for a few weeks due to "complications" with the machine but did not provide further details. Please refer to Dr. Kellogg's attestation for any changes to the treatment plan Allergies Allergy/AdvReac Type Severity Reaction Status Date / Time latex Allergy Unknown Rash at Verified 12/17/22 06:00 injection site (told d/t latex), pt uses latex glove acetaminophen AdvReac Unknown Avoids d/t Verified 12/17/22 06:00 liver Home Medications Medication Instructions Recorded Confirmed Type levalbuterol HCl 1.25 mg/0.5 mL 1.25 mg inhalation TID PRN 08/05/19 12/17/22 History solution for nebulization Shortness Of Breath [id number] 1 tab PO QAM 08/05/19 12/17/22 History tablet (Multivitamin 50 Plus tablet) albuterol sulfate 90 mcg/actuation 1 puff inhalation Q6H PRN 01/31/21 12/17/22 Rx aerosol inhaler Shortness Of Breath #18 grams CPAP Supplies #1 ea 08/02/21 12/06/22 Rx diclofenac sodium 1 % topical gel 2 g topical QID PRN pain, moderate 03/13/22 12/17/22 Rx #100 grams armodafinil 250 mg tablet (Nuvigil) 250 mg PO QAM #90 tabs 05/30/22 12/17/22 Rx metoprolol tartrate 50 mg tablet 50 mg PO BID #180 tabs 07/02/22 12/17/22 Rx diazepam 5 mg tablet (Valium) 5 mg PO TID PRN muscle spasm #90 11/04/22 12/17/22 Rx tabs levothyroxine 125 mcg tablet 125 mcg PO QAM #90 tabs 11/13/22 12/17/22 Rx levocetirizine 5 mg tablet 5 mg PO DAILY #30 tabs 11/18/22 12/17/22 Rx fluticasone 100 mcg-salmeterol 50 1 inh inhalation BID PRN Shortness 11/28/22 12/17/22 History mcg/dose blistr powdr for Of Breath inhalation fluticasone propionate 50 1 spray intranasal BID PRN Allergy 11/28/22 12/17/22 History mcg/actuation nasal Symptoms spray,suspension lisinopril 20 1 tab PO BID #180 tabs 12/02/22 12/17/22 Rx mg-hydrochlorothiazide 25 mg tablet oxycodone 20 mg tablet 20 mg PO QID PRN pain 30 days #120 12/09/22 12/17/22 Rx tabs clonidine HCl 0.1 mg tablet 0.1 mg PO TID PRN hypertensive 12/13/22 12/17/22 Rx emergency #90 tabs Patient History Medical History Cervicalgia Chronic obstructive pulmonary disease Chronic pain Daytime somnolence Degenerative cervical spinal stenosis Diverticulosis Hx of hepatitis C Hypertension Osteoarthritis Sleep apnea Thoracic back pain Surgical History History of bronchoscopy History of colonoscopy History of surgery History of total hip replacement Hx of cardiac cath Hx of wisdom tooth extraction Slow to wake up after anesthesia Family History Father Family history of diabetes mellitus Heart disease Hypertension Myocardial infarction Diabetes Mother FHx: ovarian cancer Cancer Denies family history of Ovarian cancer Prostate cancer Social History Smoking Status: Former smoker Tobacco Type: Pipe Age Started Using Tobacco: 16; Age Quit Using Tobacco: 28; Second Hand Exposure: Yes; Do You Dip or Chew Tobacco: No; Hx Alcohol Use: Yes Alcohol type: hard liquor Alcohol Intake Frequency: Monthly or Less Hx Substance Use: No Preferred Language: Lithuanian Communication Ability: Effective Visual Impairment: No Limitations Hearing Ability: Normal 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: No Beliefs That Will Affect Care: None marital status: Current Living Situation: Spouse current occupational status: retired How many Children do You have: 2 Feels Safe at Home: Yes Childhood Exposure to Second-Hand Smoke: Yes Diet: regular Diet Comment: regular caffeine: Yes during the past year weight has: remained stable Dental Care, Regularly: Yes Physical Activity Frequency: Daily Seatbelt Use: always Sunscreen Use: Yes Assistive Devices: Glasses Physical Exam Physical Exam: Physical Exam: General: In no acute distress, stated age, well-nourished, good hygiene HEENT: Normocephalic, patient with bandage on the left, anterior neck without signs of drainage, no scleral icterus, pupils around round, symmetrical, and reactive to light, moist mucus membranes, trachea midline, no thyromegaly Chest/Pulm: No respiratory distress, symmetrical chest expansion, clear breath sounds throughout Cardiac: RRR, no murmurs noted Abdomen: Negative for ascites and bruising, normoactive bowel sounds, soft, non-tender to palpation throughout Musculoskeletal: Symmetrical and without signs of acute trauma, upper and lower extremities with full ROM, no atrophy, spasticity, or flaccidity Extremities: Radial, dorsalis pedis, and posterior tibial pulses are intact and symmetrical, no edema noted in the BL LE's Skin: Warm, dry, no rashes , lesions, or scars noted Neuro: Alert and oriented to person, place, month, year, and president, no focal defects, CN II-XII tested and intact, no tremors noted Psych: No acute distress, calm and cooperative during the exam Results & Data Results & Data Vital Signs (Past 12 Hours) Vital Signs Temp Pulse Pulse Resp BP Pulse Ox O2 Del Method 12/17/22 16:05 78 16 134/71 98 Nasal Cannula 12/17/22 15:42 76 18 98 Nasal Cannula 12/17/22 15:05 36.4 C L 78 16 140/72 98 Nasal Cannula 12/17/22 14:03 36.4 C L 76 15 130/74 98 Nasal Cannula 12/17/22 13:33 36.5 C 77 16 131/74 97 Nasal Cannula 12/17/22 13:05 36.5 C 98 H 16 127/70 98 Nasal Cannula 12/17/22 12:45 36.4 C L 71 14 112/75 97 Nasal Cannula 12/17/22 12:30 36.3 C L 75 14 133/72 98 Nasal Cannula 12/17/22 12:15 36.3 C L 69 12 128/82 100 Nasal Cannula 12/17/22 12:05 70 16 128/69 99 Nasal Cannula 12/17/22 11:55 69 12 124/90 97 Room Air 12/17/22 11:45 70 14 121/82 98 Room Air 12/17/22 11:35 70 15 137/77 100 Oxymask 12/17/22 11:25 36.2 C L 70 15 141/67 H 98 Oxymask 12/17/22 11:15 36.2 C L 78 19 153/64 H 98 Oxymask 12/17/22 06:07 Room Air, CPAP 12/17/22 06:07 36.6 C 62 18 170/88 H 96 Room Air O2 Flow Rate 12/17/22 16:05 2 12/17/22 15:42 2 12/17/22 15:05 2 12/17/22 14:03 2 12/17/22 13:33 2 12/17/22 13:05 2 12/17/22 12:45 2 12/17/22 12:30 2 12/17/22 12:15 2 12/17/22 12:05 2 12/17/22 11:55 12/17/22 11:45 12/17/22 11:35 6 12/17/22 11:25 6 12/17/22 11:15 6 12/17/22 06:07 12/17/22 06:07 PG Care Time/CCT Total # of Minutes Spent Total Time Spent with Patient: Total time spent is greater than 50% in coordination of care (as documented) at patient's floor/unit and/or counseling patient: Coding [place] [address] IN/OBS CONSULT LVL 5,80M Patient Type Established Medical Decision Making High Complexity Diagnoses Status post cervical spinal fusion Z98.1 Urinary retention R33.9 Chronic obstructive pulmonary disease J44.9 Hyperglycemia R73.9 Hypertension I10 Hypertension type: unspecified Sleep apnea G47.30 Hypothyroidism E03.9 (5) Hypertension Hypertension type: unspecified Qualified Code(s): I10 - Essential (primary) hypertension
[2022-12-17] MEDS: LISINOPRIL/HCTZ 20/25MG 1 TAB PO SCH (17:40)
[2022-12-17] MEDS ORDERED: CARBOHYDRATES FOR HYPOGLYCEMIA PO PRN (18:22)
[2022-12-17] MEDS ORDERED: GLUCAGON FOR INJ 1 MG VIAL SQ PRN (18:22)
[2022-12-17] MEDS ORDERED: DEXTROSE 50% 50 ML SYRINGE IV PRN (18:22)
[2022-12-17] MEDS ORDERED: GLUCOSE 40% GEL 15 GM TUBE PO PRN (18:22)
[2022-12-17] MEDS ORDERED: GLUCOSE 10 TAB/TUBE PO PRN (18:22)
[2022-12-17] MEDS: HYDROmorphone INJ 0.5 MG/0.5 ML SYR IV PRN (19:42)
[2022-12-17] MEDS ORDERED: DOCUSATE SODIUM/SENNA 50/8.6MG TAB PO SCH (21:00)
[2022-12-17] MEDS: METOPROLOL TARTRATE 50 MG TAB PO SCH (21:24)
[2022-12-17] MEDS: GABAPENTIN 300 MG CAP PO SCH (21:24)
[2022-12-17] MEDS: INSULIN ASPART PER UNIT CHARGE SC SCH (21:32)
[2022-12-18] MEDS: ceFAZolin 1000MG 1,000 MG/7.5 ML SYR IV SCH (01:50)
[2022-12-18] MEDS: HYDROmorphone INJ 0.5 MG/0.5 ML SYR IV PRN (01:57)
[2022-12-18] MEDS ORDERED: POLYETHYLENE (MIRALAX) 17 GM PACK PO SCH (06:00)
[2022-12-18 06:54] LABS: Basophils # (auto) 0.01 K/uL (0-0.2); Basophils % (auto) 0.1 %; Eosinophils # (auto) 0.01 K/uL (0-0.50); Eosinophils % (auto) 0.1 %; Hemoglobin 13.6 g/dl (14.0-18.0); Immature Granulocytes # (auto) 0.04 K/uL (0.01-0.20); Immature Granulocytes % (auto) 0.4 %; Lymphocytes % (auto) 13.5 %; Mean Corpuscular Hemoglobin 32.5 pg (25.0-34.0); Mean Corpuscular Hgb Conc 36.8 g/dL (32.0-36.0); Mean Corpuscular Volume 88.3 fL (80.0-100.0); Mean Platelet Volume 8.8 fL (9.4-12.4); Monocytes # (auto) 0.94 K/uL (0.11-0.59); Monocytes % (auto) 9.1 %; Neutrophils # (auto) 7.97 K/uL (1.40-6.50); Neutrophils % (auto) 76.8 %; Platelet Count 220 K/uL (130-400); RDW Standard Deviation 38.8 fL (36.4-46.3); Red Blood Count 4.19 M/uL (4.70-6.10); White Blood Count 10.37 K/ul (4.8-10.8)
[2022-12-18 07:08] LABS: BUN Creatinine Ratio 18.9 (10-20); Calcium 8.8 mg/dl (8.6-10.3); Creatinine Clr Calc Pharmacy 113.6 ml/min; Est GFR (African American) 109.1 ml/min; Est GFR (Non-African American) 94.1 ml/min; Potassium 3.9 mmol/L (3.5-5.1)
[2022-12-18] MEDS: GABAPENTIN 300 MG CAP PO SCH (07:48)
[2022-12-18] MEDS: METOPROLOL TARTRATE 50 MG TAB PO SCH (07:49)
[2022-12-18] MEDS: LISINOPRIL/HCTZ 20/25MG 1 TAB PO SCH (07:49)
[2022-12-18] MEDS: oxyCODONE HCL IR 5 MG TAB (IMMEDIATE RELEASE) PO PRN (07:57)
[2022-12-18 08:21] LABS: Estimated Average Glucose 140 mg/dl; Hemoglobin A1C 6.5 % (4.5-5.6)
--- NOTE | 2022-12-18 08:35 | Hospitalist Progress Note ---
Date of Service December 18, 2022 Assessment & Plan (1) Status post cervical spinal fusion: Plan: POD#1 s/p Anterior Cervical Decompression, Fusion, Instrumentation C3-4, Spinal Cord Monitoring(Not Applicable) - Elder Helms MD EBL 20cc WBC wnl, afebrile Hgb drop, acute blood loss anemia from surgery/dilutional from IVF but stable. No bleeding on exam Pain control/bowel regimen/Pt/OT per primary service Of note, lisinopril-HCTZ resumed last evening, on 20-25mg BID, would rec f/u PCP and seeing about alternative BP medications to prevent low Sharif. Him and report this is NEW medication w/ diuretic for higher BPs w/ pain outpatient. Discussed holding for now/discussing w/ PCP tomorrow and monitoring BPs at home. increase PO salt intake in meantime. Discussed w/ patient/ about consider repeating TSH in f/u PCP as on Synthroid 125mcg daily but would not check in acute setting of surgery Patient stable for discharge otherwise (2) Urinary retention: Plan: Bladder scan 650cc, initially only 200cc output Resumed his lisinopril/HCTZ and no issues since Reports voiding without issues voiding since Consideration for flomax w/ PCP if issues but rec continued bowel regimen at discharge (3) Chronic obstructive pulmonary disease: Plan: Was on 2L NC S/P procedure , titrated to RA Stable on RA, no SOB reported (4) Hyperglycemia: Plan: Patient with a hx of hyperglycemia listed on his PMH -Not currently on an antihyperglycemic regimen outpatient -Last Hgb A1c was 6.1 as of 01/07/22 -Will monitor BSG ACHS for now, goal is 110-140 -Will start a CF of 50 ACHS -Adjust regimen as needed BSgs acceptable, refusing insulin inpatient F/u PCP (5) Hypertension: Plan: Stable, elevations outpt and new combo diuretics as above which was resumed Continued on metoprolol, clonidine Hold lisinopril-HCTZ at d/c given hyponatremia and otherwise stable BPs outside of pain control F/u PCP for adjustments but hold diuretic at d/c as above (6) Sleep apnea: Plan: Not currently using HS CPAP (7) Hypothyroidism: Plan: -Continue levothyroxine consider checking TSH outpatient if Na levels not improved w/ adjustment to his HCTZ for BP management Plan case discussed w/ Dr Helms and shannan for dc from medicine after therapy evaluations to hold his HCTZ at d/c and monitor BPs at home given hyponatremia/new med but only mild lightheadedness since starting this and maintains low Na diet outpatient. increase PO na intake in the meantime recommended and discussed with patient and his at bedside please call with any questions/concerns Admission and Anticipated Discharge Date Admission Date: December 17, 2022 Supervising Physician Co-Signing Physician Notes The patient was not seen by me. The chart was reviewed. Case discussed with SAGE Sprague. Agree with assessment and plan Subjective patient evaluated this morning, ready to leave/discharge. no issues with diet/swallowing. no shortness of breath. discussed low Na levels. He does have some lightheadedness but not feeling like going to fall. He adheres to low salt diet at home. Per patient/, PCP added diuretic to his BP med w/ elevations due to pain in his neck and was hopeful to have this discontinued after surgery. Discussed holding this medication tonight/discussing w/ PCP about repeating labs later this week if any issues but would hold further dosing for tonight/monitoring BPs and discussing w/ PCP medication excluding his HCTZ component at discharge. Discussed also repeating TSH if hasn't been done lately but not having the other symptoms of hypothyroidism at present. no fevers/chills, chest pain. questions/concerns addressed at this time. Physical Exam Physical Exam: General: WN/WD male dressed and up in chair, awaiting discharge, NAD HEENT: head normocephalic, atraumatic, neck w/ some edema to left neck around incision, no hematoma/abscess, drain removed/covered w/ tegaderm NO stridor, no difficulty swallowing/clearing secretions Resp: CTA, no w/c/r, on room air CV: RRR, no significant m/r/g, no pitting edema GI: +BS, soft/NT : no carmona MSK/Neuro: no focal deficits, no slurred speech strength equal bilaterally Psych: AOx3, cooperative with exam wanting to go home as soon as possible Results & Data Results & Data Vital Signs (Past 12 Hours) Vital Signs Temp Pulse Resp BP Pulse Ox O2 Del Method 12/18/22 07:37 36.9 C 68 17 120/73 93 Room Air 12/18/22 07:15 67 16 95 Room Air 12/18/22 05:57 68 114/58 L 93 Room Air 12/18/22 03:49 36.4 C 69 111/66 95 Room Air 12/18/22 03:16 74 16 96 Room Air 12/18/22 01:42 36.4 C L 76 18 151/74 H 96 Room Air 12/17/22 23:53 36.7 C 84 127/72 94 Room Air 12/17/22 23:37 82 18 91 Room Air 12/17/22 22:10 85 113/67 96 Room Air Laboratory Results 12/18/22 12/18/22 12/18/22 Range/Units 08:09 06:38 06:38 WBC (4.8-10.8) K/ul RBC (4.70-6.10) M/uL Hgb (14.0-18.0) g/dl Hct (42.0-52.0) % MCV (80.0-100.0) fL MCH (25.0-34.0) pg MCHC (32.0-36.0) g/dL RDW Std Deviation (36.4-46.3) fL RDW Coeff of Sarah (11.5-14.5) % Plt Count (130-400) K/uL MPV (9.4-12.4) fL Immature Gran % (Auto) % Neut % (Auto) % Lymph % (Auto) % [place] % (Auto) % Eos % (Auto) % Baso % (Auto) % Neut # (Auto) (1.40-6.50) K/uL Lymph # (Auto) (1.2-3.4) K/uL [place] # (Auto) (0.11-0.59) K/uL Eos # (Auto) (0-0.50) K/uL Baso # (Auto) (0-0.2) K/uL Immature Gran # (Auto) (0.01-0.20) K/uL Sodium 129 L (136-145) mmol/L Potassium 3.9 (3.5-5.1) mmol/L Chloride 93 L (98-107) mmol/L Carbon Dioxide 29 (21-32) mmol/L Anion Gap 7 (3-11) BUN 14 (6-23) mg/dl Creatinine 0.74 (0.6-1.4) mg/dl Est Cr Clr Drug Dosing 113.6 ml/min Est GFR ( Amer) 109.1 ml/min Est GFR (Non-Af Amer) 94.1 ml/min BUN/Creatinine Ratio 18.9 (10-20) Glucose 135 H (70-99(Fasting)) mg/dl POC Glucose 142 H (70-99) mg/dl Estimat Average Glucose 140 mg/dl Hemoglobin A1c 6.5 H (4.5-5.6) % Calcium 8.8 (8.6-10.3) mg/dl 12/18/22 12/17/22 Range/Units 06:38 20:57 WBC 10.37 (4.8-10.8) K/ul RBC 4.19 L (4.70-6.10) M/uL Hgb 13.6 L (14.0-18.0) g/dl Hct 37.0 L (42.0-52.0) % MCV 88.3 (80.0-100.0) fL MCH 32.5 (25.0-34.0) pg MCHC 36.8 H (32.0-36.0) g/dL RDW Std Deviation 38.8 (36.4-46.3) fL RDW Coeff of Sarah 12.0 (11.5-14.5) % Plt Count 220 (130-400) K/uL MPV 8.8 L (9.4-12.4) fL Immature Gran % (Auto) 0.4 % Neut % (Auto) 76.8 % Lymph % (Auto) 13.5 % [place] % (Auto) 9.1 % Eos % (Auto) 0.1 % Baso % (Auto) 0.1 % Neut # (Auto) 7.97 H (1.40-6.50) K/uL Lymph # (Auto) 1.40 (1.2-3.4) K/uL [place] # (Auto) 0.94 H (0.11-0.59) K/uL Eos # (Auto) 0.01 (0-0.50) K/uL Baso # (Auto) 0.01 (0-0.2) K/uL Immature Gran # (Auto) 0.04 (0.01-0.20) K/uL Sodium (136-145) mmol/L Potassium (3.5-5.1) mmol/L Chloride (98-107) mmol/L Carbon Dioxide (21-32) mmol/L Anion Gap (3-11) BUN (6-23) mg/dl Creatinine (0.6-1.4) mg/dl Est Cr Clr Drug Dosing ml/min Est GFR ( Amer) ml/min Est GFR (Non-Af Amer) ml/min BUN/Creatinine Ratio (10-20) Glucose (70-99(Fasting)) mg/dl POC Glucose 182 H (70-99) mg/dl Estimat Average Glucose mg/dl Hemoglobin A1c (4.5-5.6) % Calcium (8.6-10.3) mg/dl Diagnostic Findings Cervical Spine X-Ray 12/17/22 07:15 FL cervical 2-3V CLINICAL HISTORY: ACDF C3-4 COMPARISON STUDY: Cervical spine 10/08/2022. FLUOROSCOPY TIME: 1 minute FLUOROSCOPY IMAGES: 4 Ka,r: 8.2 mGy FINDINGS: Anterior cervical discectomy and fusion at C3-C4. The hardware appears intact. IMPRESSION: Fluoroscopic assistance as above. ACT 112: Negative or not required by law. Electronically signed by: Blayne Winters M.D. 12/17/2022 1:12 PM PG Care Time/CCT Total # of Minutes Spent Total Time Spent with Patient: Total time spent is greater than 50% in coordination of care (as documented) at patient's floor/unit and/or counseling patient: Coding Level of Care Code 68801 SUB INP/OBS CARE 3/50MIN Diagnoses Status post cervical spinal fusion Z98.1 Urinary retention R33.9 Chronic obstructive pulmonary disease J44.9 Hyperglycemia R73.9 Hypertension I10 Hypertension type: unspecified Sleep apnea G47.30 Hypothyroidism E03.9 (5) Hypertension Hypertension type: unspecified Qualified Code(s): I10 - Essential (primary) hypertension
[2022-12-18] MEDS: INSULIN ASPART PER UNIT CHARGE SC SCH (08:37)
--- NOTE | 2022-12-18 08:57 | Orthopedic Progress Note ---
Date of Service December 18, 2022 Subjective Patient awake and alert, sitting at bedside and eating, he notes some soreness with swallowing but is tolerating food, and no change in his cervical spine axial symptoms. Incision site is dry dressing intact. Impression: 1 day status post C3-4 ACDF with decompression for cervical stenosis, overall stable postoperative. Plan: At this time we will have the patient discharged later today after medical services seeing him and he has been cleared with physical therapy and O ccupational Therapy. He will continue his home medications, advised him on limitations in activity and we will see him in the office in 2 weeks. Review of Systems All systems reviewed & are unremarkable except as noted in HPI & below. Physical Exam . Results & Data Results & Data Laboratory Results . Diagnostic Findings . PG Care Time/CCT Total # of Minutes Spent Total Time Spent with Patient: Total time spent is greater than 50% in coordination of care (as documented) at patient's floor/unit and/or counseling patient: Coding Level of Care Code 24516 Post Operative Follow-Up Diagnoses
[2022-12-18] MEDS ORDERED: CETIRIZINE HCL 10 MG TABLET PO SCH (09:00)
[2022-12-18] MEDS ORDERED: FLUTICASONE/VILANTEROL 100/25MCG 14 PUFFS/INHALER INH SCH (09:00)
[2022-12-18] MEDS ORDERED: LEVOTHYROXINE SODIUM 125 MCG TABLET PO SCH (09:00)
--- NOTE | 2022-12-26 15:28 | Discharge Summary ---
Date of Service December 26, 2022 Principal Diagnosis Same as "Discharge Diagnosis" noted below under Discharge Instructions. Discharge Exam . Discharge Data Consultations 12/17/22 16:01 Consult Hospitalist Routine Procedures Performed Operation Date: 12/17/22 07:15 Actual Procedures p Anterior Cervical Decompression, Fusion, Instrumentation C3-4, Spinal Cord Monitoring(Not Applicable) - Elder Helms MD Ordered Studies 12/17/22 07:15 FL cervical 2-3V Routine Hospital Course (1) Status post cervical spinal fusion: (2) Degenerative cervical spinal stenosis: Plan surgery, follow up in 2 weeks PG Care Time/CCT Total # of Minutes Spent Total Time Spent with Patient: Total time spent is greater than 50% in coordination of care (as documented) at patient's floor/unit and/or counseling patient: Discharge Plan Discharge Items Patient Disposition: Home - Self-Care Reason For Visit: Cervical DAYDAY, Stenosis of Cervical Spine wiht Myel Discharge Diagnosis: Cervical stenosis Activity: Per Instructions section Lifting: No more than 10 pounds Bathing: May shower/bathe in 3 days Driving/Machine Use: Resume 3 days after discharge Non-emergency contact: Surgeon Call non-emergency contact if: your pain is worsening Follow-up/Referrals: Mike Oconnor, [Primary Care Provider] - Diet: Regular Addtl Attending Provider Instructions: Try to restrict excessive head motion, no heavy lifting. Addtl [employer] Provider Instructions: HOLD your lisinopril-hydrochlorothiazide given low sodium levels. This is a diuretic and the hydrochlorothiazide component can cause low sodium levels which can cause lightheaded/dizziness. Please hold this medication tonight and monitor your blood pressures. please call PCP tomorrow and discuss changing this medication vs dropping the HCTZ component. If having any ongoing issues, would recommend repeating labs later this week to ensure sodium improving. You can also increase your salt intake at home in the meantime. Pending Studies at Discharge: No Stand-Alone Forms: My [employer], Smoking Cessation Medications and DC Order Prescriptions: Continued armodafinil [Nuvigil] 250 mg tablet 250 mg PO QAM Qty: 90 1RF diazepam [Valium] 5 mg tablet 5 mg PO TID PRN (Reason: muscle spasm) Qty: 90 0RF levothyroxine 125 mcg tablet 125 mcg PO QAM Qty: 90 1RF oxycodone 20 mg tablet 20 mg PO QID PRN (Reason: pain) 30 Days Qty: 120 0RF Rx Instructions: Ongoing treatment. clonidine HCl 0.1 mg tablet 0.1 mg PO TID PRN (Reason: hypertensive emergency) Qty: 90 2RF Rx Instructions: Take as needed if SBP >150 and/or DBP >90 levocetirizine 5 mg tablet 5 mg PO DAILY Qty: 30 2RF albuterol sulfate 90 mcg/actuation HFA aerosol inhaler 1 puff INHALATION Q6H PRN (Reason: Shortness Of Breath) Qty: 18 5RF (DME) CPAP Supplies Misc See Rx Instructions .MEDSUPPLY Qty: 1 5RF Rx Instructions: New CPAP mask. AirFit F30. Lifetime need. Multivitamin 50 Plus Tablet 1 tab PO QAM levalbuterol HCl 1.25 mg/0.5 mL Solution For Nebulization 1.25 mg INHALATION TID PRN (Reason: Shortness Of Breath) fluticasone propionate 50 mcg/actuation spray,suspension 1 spray intranasal BID PRN (Reason: Allergy Symptoms) Rx Instructions: USE 1 SPRAY IN EACH NOSTRIL TWICE DAILY fluticasone propion-salmeterol 100-50 mcg/dose blister with device 1 inh inhalation BID PRN (Reason: Shortness Of Breath) Held lisinopril-hydrochlorothiazide 20-25 mg tablet 1 tab PO BID Qty: 180 1RF Hold Instructions: Resume on 12/20/22. after discussed with PCP/repeat labs diclofenac sodium 1 % gel 2 g topical QID PRN (Reason: pain, moderate) Qty: 100 2RF Hold Instructions: Resume on 01/16/23. No Action lisinopril 20 mg tablet 20 mg PO BID Qty: 60 2RF metoprolol tartrate 50 mg tablet 50 mg PO BID Qty: 180 3RF Discharge Orders: Discharge Order (Routine); Ordered 12/18/22 Ordered By: Elder Biggs/Other Patient Handouts: A1C, 5 Steps for Eating Healthier Admission Data Admit Date/Time: 12/17/22 11:41 Attending Provider: Elder Helms Admit Provider: Elder Helms Primary Care Provider: Mike Oconnor Other Providers: Deshaun Kellogg Other Interventions: Discharge Summary Assessment (RN) Last Done: 12/18/22 09:21
== END 2022-12-18 10:56 | disposition home or self-care (01) ==
LOC: ASU 05:44 → 3E 05:44

== ENCOUNTER 2024-01-25 11:37 | Observation (INO) ==
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
[2024-01-25 12:16] LABS: Basophils # (auto) 0.04 K/uL (0.00-0.20); Basophils % (auto) 0.5 %; Eosinophils # (auto) 0.13 K/uL (0.00-0.50); Eosinophils % (auto) 1.6 %; Hematocrit (blood only) 40.1 % (42.0-52.0); Immature Granulocytes # (auto) 0.04 K/uL (0.01-0.20); Immature Granulocytes % (auto) 0.5 %; Lymphocytes # (auto) 1.79 K/uL (1.20-3.40); Lymphocytes % (auto) 21.7 %; Mean Corpuscular Hemoglobin 32.3 pg (25.0-34.0); Mean Corpuscular Hgb Conc 34.9 g/dL (32.0-36.0); Mean Corpuscular Volume 92.4 fL (80.0-100.0); Mean Platelet Volume 9.5 fL (9.4-12.4); Monocytes # (auto) 0.73 K/uL (0.11-0.59); Monocytes % (auto) 8.8 %; Neutrophils # (auto) 5.53 K/uL (1.40-6.50); Neutrophils % (auto) 66.9 %; Platelet Count 209 K/uL (130-400); RDW Coefficient of Variation 12.4 % (11.5-14.5); RDW Standard Deviation 42.6 fL (36.4-46.3); Red Blood Count 4.34 M/uL (4.70-6.10); White Blood Count 8.26 K/ul (4.8-10.8)
[2024-01-25 12:32] LABS: Albumin Globulin Ratio 1.3 (0.9-2); Albumin Level 4.1 gm/dl (3.4-5.0); BUN Creatinine Ratio 24.1 (10-20); Bilirubin,Total 0.6 mg/dl (0.2-1.0); Calcium 9.2 mg/dl (8.6-10.3); Creatinine Clr Calc Pharmacy 95.5 ml/min; Est GFR (African American) 105.4 ml/min; Globulin 3.2 gm/dl (2.5-4.0); Potassium 3.8 mmol/L (3.5-5.1); Total Protein 7.3 gm/dl (6.0-8.3)
[2024-01-25] MEDS: MoRPHine SULFATE 10 MG/ML CARP/VIAL IV STA (12:32)
[2024-01-25] MEDS: SODIUM CHLORIDE 0.9% 500 ML IV ONE (12:32)
[2024-01-25 12:42] LABS: Partial Thromboplastin Time 27 Seconds (21-31); Prothrombin Time 11.2 Seconds (9.0-12.0)
--- NOTE | 2024-01-25 13:25 | XRay Report ---
SINGLE VIEW PELVIS; 2 VIEWS RIGHT HIP CLINICAL HISTORY: Right hip pain. Possible dislocation. FINDINGS: An AP view of the pelvis with AP and crosstable lateral views of the right hip are compared to study dated 11/20/2023. The skeletal structures are osteopenic. A right hip arthroplasty is in plac e. There has been superior dislocation of the femoral component of the arthroplasty. No acute fractur e is identified involving the hips or bony pelvis. Mild arthritic change and joint space narrowing is seen in the left hip. There is degenerative sclerosis of the sacroiliac joints. Lumbosacral spondylo sis is partially imaged. Phleboliths are noted in the pelvis. There overlying soft tissues are normal as imaged. IMPRESSION: 1. Right hip arthroplasty dislocation as above. 2. No fracture is seen. Electronically signed by: Fabiano Staley M.D. 01/25/2024 1:23 PM
[2024-01-25] MEDS: PROPOFOL IV EMULSION 10 MG/ML 20 ML VIAL IV STA (14:52)
--- NOTE | 2024-01-25 15:22 | XRay Report ---
SINGLE VIEW PELVIS CLINICAL HISTORY: Right hip arthroplasty dislocation. Attempted reduction. FINDINGS: An AP, portable, supine view of the pelvis is compared to study performed earlier the same day 01/25/2024. The skeletal structures are osteopenic. A right hip arthroplasty is in place. There is persistent superior dislocation of the femoral component of the arthroplasty. No acute fracture is id entified involving the hips or bony pelvis. Mild arthritic change and joint space narrowing is seen i n the left hip. There is degenerative sclerosis of the sacroiliac joints. Phleboliths are noted in th e pelvis. There overlying soft tissues are normal as imaged. IMPRESSION: 1. Persistent dislocation of the right hip arthroplasty as above. 2. No fracture is seen. Electronically signed by: Fabiano Staley M.D. 01/25/2024 3:21 PM
--- NOTE | 2024-01-25 15:23 | XRay Report ---
SINGLE VIEW PELVIS CLINICAL HISTORY: Right hip arthroplasty dislocation. Second attempted reduction. FINDINGS: An AP, portable, supine view of the pelvis is compared to studies performed earlier the [facility] 01/25/2024. The skeletal structures are osteopenic. A right hip arthroplasty is in place. There i s persistent superior dislocation of the femoral component of the arthroplasty. No acute fracture is identified involving the hips or bony pelvis. Mild arthritic change and joint space narrowing is seen in the left hip. There is degenerative sclerosis of the sacroiliac joints. Phleboliths are noted in the pelvis. There overlying soft tissues are normal as imaged. IMPRESSION: 1. Persistent dislocation of the right hip arthroplasty as above. 2. No fracture is seen. Electronically signed by: Fabiano Staley M.D. 01/25/2024 3:22 PM
--- NOTE | 2024-01-25 15:35 | Orthopedic Consultation ---
Date of Consultation January 25, 2024 Assessment & Plan (1) Hip dislocation, right: X-rays demonstrate a superior and probable posterior dislocation of the right hip. There is no evidence of fracture. Labs are noted. H&H okay. White count normal. I recommended close reduction under it and anesthesia. We may need to use paralysis. There is a small chance we are not able to get the hip back into place in which case he may need an open reduction. If successful I think we will probably keep him overnight and get a hip abduction brace for him tomorrow. He can then follow-up with his surgeon. We talked about risks benefits of the procedure. There is a small risk for implant damage or fracture. He agreed to proceed and informed consent was obtained. History of Present Illness History of Present Illness Patient 68 years old. Lifted his leg up to bathed in the shower. He may have twisted. At any length his hip popped out. He is about 4 years status post a total hip replacement done by Dr. Maciel. He has had no problems since. He has severe pain. Was brought to the emergency room. Dr. Palafox did multiple attempts at sedation and reduction in the emergency room without success I was consulted to assist with the patient. He complains of pain in the right hip area. Allergies Allergy/AdvReac Type Severity Reaction Status Date / Time latex Allergy Unknown Rash at Verified 01/21/24 16:08 injection site (told d/t latex), pt uses latex glove acetaminophen AdvReac Unknown Avoids d/t Verified 01/21/24 16:08 liver Home Medications Medication Instructions Recorded Confirmed Type levalbuterol HCl 1.25 mg/0.5 mL 1.25 mg inhalation TID PRN 08/05/19 01/25/24 History solution for nebulization Shortness Of Breath [id number] 1 tab PO QAM 08/05/19 01/25/24 History tablet (Multivitamin 50 Plus tablet) CPAP Supplies #1 ea 08/02/21 01/21/24 Rx levocetirizine 5 mg tablet 5 mg PO DAILY #30 tabs 11/18/22 01/25/24 Rx fluticasone 100 mcg-salmeterol 50 1 inh inhalation BID PRN Shortness 11/28/22 History mcg/dose blistr powdr for Of Breath inhalation fluticasone propionate 50 1 spray intranasal BID PRN Allergy 11/28/22 01/25/24 History mcg/actuation nasal Symptoms spray,suspension lisinopril 20 1 tab PO BID #180 tabs 12/02/22 01/25/24 Rx mg-hydrochlorothiazide 25 mg tablet albuterol sulfate 90 mcg/actuation 1 puff inhalation Q6H PRN 01/06/23 01/25/24 Rx aerosol inhaler Shortness Of Breath #18 grams lisinopril 20 mg tablet 20 mg PO BID #60 tabs 03/17/23 01/25/24 Rx Fish Oil 1 cap PO UD 05/20/23 01/25/24 History ascorbic acid (vitamin C) 500 mg 500 mg PO BID 05/20/23 01/25/24 History capsule zinc 1 tab PO BID 05/20/23 01/25/24 History aspirin 81 mg chewable tablet 81 mg PO DAILY 05/26/23 01/25/24 History (Aspirin Childrens) baclofen 20 mg tablet 20 mg PO BID #60 tabs 05/26/23 01/25/24 Rx latanoprost 0.005 % eye drops 1 drp ophthalmic (eye) QPM 05/26/23 01/25/24 History nystatin 100,000 unit/mL oral 5 ml PO Q6H #200 mL 06/04/23 01/25/24 Rx suspension diclofenac sodium 1 % topical gel 2 g topical QID PRN pain, moderate 06/06/23 01/25/24 Rx #100 grams oxybutynin chloride 5 mg tablet 5 mg PO DAILY #90 tabs 06/09/23 01/25/24 Rx diazepam 5 mg tablet (Valium) 5 mg PO TID PRN muscle spasm #90 09/05/23 01/25/24 Rx tabs silver sulfadiazine 1 % topical 1 applic topical DAILY #25 grams 10/01/23 0 01/25/24 Rx cream (Silvadene) clonidine HCl 0.1 mg tablet 0.1 mg PO TID PRN hypertensive 10/29/23 01/25/24 Rx emergency #90 tabs levothyroxine 125 mcg tablet See Rx Instructions .Route 11/04/23 01/25/24 Rx .COMPLEX #90 tabs armodafinil 250 mg tablet (Nuvigil) 250 mg PO QAM #90 tabs 11/18/23 01/25/24 Rx metoprolol tartrate 50 mg tablet 50 mg PO BID #180 tabs 11/24/23 01/25/24 Rx ibuprofen 600 mg tablet 600 mg PO Q6H PRN pain #120 tabs 12/03/23 01/25/24 Rx oxycodone 20 mg tablet 20 mg PO QID PRN pain 30 days #120 01/01/24 01/25/24 Rx tabs tamsulosin 0.4 mg capsule 0.4 mg PO DAILY #30 caps 01/13/24 01/25/24 Rx doxepin 10 mg capsule 10 mg PO DAILY #30 caps 01/21/24 01/25/24 Rx amlodipine 10 mg tablet 10 mg PO HS 01/25/24 01/25/24 History Patient History Medical History Daytime somnolence Using Nuvigil daily Diverticulosis Hx of hepatitis C Treated/cleared "years ago" Hypertension Sleep apnea CPAP (compliant) Surgical History H/O neck surgery History of total hip replacement Slow to wake up after anesthesia History of bronchoscopy SEVERAL Hx of wisdom tooth extraction History of surgery LIPOMA EXCISION FROM BACK History of colonoscopy Hx of cardiac cath 12+ YEARS AGO > NO STENTS Family History Father Family history of diabetes mellitus Heart disease Hypertension Myocardial infarction Diabetes Mother FHx: ovarian cancer Cancer Denies family history of Ovarian cancer Prostate cancer Social History Smoking Status: Former smoker Tobacco Type: Cigarettes Age Started Using Tobacco: 16; Age Quit Using Tobacco: 28; Second Hand Exposure: Yes; Do You Dip or Chew Tobacco: No; Hx Alcohol Use: Yes Alcohol type: hard liquor Alcohol Intake Frequency: Monthly or Less Hx Substance Use: No Preferred Language: Hungarian Communication Ability: Effective Visual Impairment: No Limitations Hearing Ability: Normal Candy Decorator Required: No Beliefs That Will Affect Care: None marital status: Current Living Situation: Spouse current occupational status: retired How many Children do You have: 2 Feels Safe at Home: Yes Childhood Exposure to Second-Hand Smoke: Yes Diet: regular Diet Comment: regular caffeine: Yes during the past year weight has: remained stable Dental Care, Regularly: Yes Physical Activity Frequency: Daily Seatbelt Use: always Sunscreen Use: Yes Assistive Devices: Glasses Physical Exam Physical Exam: Pain localized to the right hip. Unable to move right hip. Skin intact without significant bruising or swelling. DP and PT pulses are 1+. Sensation intact in the lower leg and foot. He has 5 out of 5 ankle and toe plantarflexion dorsiflexion inversion and eversion strength. Results & Data Vital Signs (Past 12 Hours) Vital Signs Temp Pulse Resp BP Pulse Ox O2 Del Method O2 Flow Rate 01/25/24 14:43 60 15 200/95 H 96 Room Air 01/25/24 14:38 61 14 203/97 H 98 Room Air 01/25/24 14:33 60 15 180/100 H 96 Room Air 01/25/24 14:28 60 30 H 150/95 H 100 Nasal Cannula 4 01/25/24 14:23 61 24 153/95 H 99 Nasal Cannula 4 01/25/24 14:18 55 L 14 180/80 H 100 Non-rebreather 15 01/25/24 14:13 59 L 14 173/85 H 100 Non-rebreather 15 01/25/24 14:08 61 19 200/101 H 99 Non-rebreather 15 01/25/24 12:12 55 L 01/25/24 11:44 36.8 C 65 20 213/98 H 96 Room Air Laboratory Results Laboratory Results WBC 8.26 K/ul (4.8-10.8) 01/25/24 11:48 RBC 4.34 M/uL (4.70-6.10) L 01/25/24 11:48 Hgb 14.0 g/dl (14.0-18.0) 01/25/24 11:48 Hct 40.1 % (42.0-52.0) L 01/25/24 11:48 MCV 92.4 fL (80.0-100.0) 01/25/24 11:48 MCH 32.3 pg (25.0-34.0) 01/25/24 11:48 MCHC 34.9 g/dL (32.0-36.0) 01/25/24 11:48 RDW Std Deviation 42.6 fL (36.4-46.3) 01/25/24 11:48 RDW Coeff of Sarah 12.4 % (11.5-14.5) 01/25/24 11:48 Plt Count 209 K/uL (130-400) 01/25/24 11:48 MPV 9.5 fL (9.4-12.4) 01/25/24 11:48 Immature Gran % (Auto) 0.5 % 01/25/24 11:48 Neut % (Auto) 66.9 % 01/25/24 11:48 Lymph % (Auto) 21.7 % 01/25/24 11:48 Petroleum % (Auto) 8.8 % 01/25/24 11:48 Eos % (Auto) 1.6 % 01/25/24 11:48 Baso % (Auto) 0.5 % 01/25/24 11:48 Neut # (Auto) 5.53 K/uL (1.40-6.50) 01/25/24 11:48 Lymph # (Auto) 1.79 K/uL (1.20-3.40) 01/25/24 11:48 Petroleum # (Auto) 0.73 K/uL (0.11-0.59) H 01/25/24 11:48 Eos # (Auto) 0.13 K/uL (0.00-0.50) 01/25/24 11:48 Baso # (Auto) 0.04 K/uL (0.00-0.20) 01/25/24 11:48 Immature Gran # (Auto) 0.04 K/uL (0.01-0.20) 01/25/24 11:48 PT 11.2 Seconds (9.0-12.0) 01/25/24 11:48 INR 1.0 (0.9-1.1) 01/25/24 11:48 APTT 27 Seconds (21-31) 01/25/24 11:48 PTT Ratio 1.0 01/25/24 11:48 Sodium 136 mmol/L (136-145) 01/25/24 11:48 Potassium 3.8 mmol/L (3.5-5.1) 01/25/24 11:48 Chloride 100 mmol/L (98-107) 01/25/24 11:48 Carbon Dioxide 30 mmol/L (21-32) 01/25/24 11:48 Anion Gap 6 (3-11) 01/25/24 11:48 BUN 19 mg/dl (6-23) 01/25/24 11:48 Creatinine 0.79 mg/dl (0.6-1.4) 01/25/24 11:48 Est Cr Clr Drug Dosing 95.5 ml/min 01/25/24 11:48 Est GFR ( Amer) 105.4 ml/min 01/25/24 11:48 Est GFR (Non-Af Amer) 91.0 ml/min 01/25/24 11:48 BUN/Creatinine Ratio 24.1 (10-20) H 01/25/24 11:48 Glucose 126 mg/dl (70-99(Fasting)) H 01/25/24 11:48 Calcium 9.2 mg/dl (8.6-10.3) 01/25/24 11:48 Total Bilirubin 0.6 mg/dl (0.2-1.0) 01/25/24 11:48 AST 33 U/L (13-39) 01/25/24 11:48 ALT 24 U/L (7-52) 01/25/24 11:48 Alkaline Phosphatase 112 U/L (34-104) H 01/25/24 11:48 Total Protein 7.3 gm/dl (6.0-8.3) 01/25/24 11:48 Albumin 4.1 gm/dl (3.4-5.0) 01/25/24 11:48 Globulin 3.2 gm/dl (2.5-4.0) 01/25/24 11:48 Albumin/Globulin Ratio 1.3 (0.9-2) 01/25/24 11:48 Impressions Hip/Pelvis X-Ray 01/25/24 12:27 SINGLE VIEW PELVIS; 2 VIEWS RIGHT HIP CLINICAL HISTORY: Right hip pain. Possible dislocation. FINDINGS: An AP view of the pelvis with AP and crosstable lateral views of the right hip are compared to study dated 11/20/2023. The skeletal structures are osteopenic. A right hip arthroplasty is in place. There has been superior dislocation of the femoral component of the arthroplasty. No acute fracture is identified involving the hips or bony pelvis. Mild arthritic change and joint space narrowing is seen in the left hip. There is degenerative sclerosis of the sacroiliac joints. Lumbosacral spondylosis is partially imaged. Phleboliths are noted in the pelvis. There overlying soft tissues are normal as imaged. IMPRESSION: 1. Right hip arthroplasty dislocation as above. 2. No fracture is seen. Electronically signed by: Fabiano Staley M.D. 01/25/2024 1:23 PM Pelvis X-Ray 01/25/24 14:19 SINGLE VIEW PELVIS CLINICAL HISTORY: Right hip arthroplasty dislocation. Second attempted reduction. FINDINGS: An AP, portable, supine view of the pelvis is compared to studies performed earlier the same day 01/25/2024. The skeletal structures are osteopenic. A right hip arthroplasty is in place. There is persistent superior dislocation of the femoral component of the arthroplasty. No acute fracture is identified involving the hips or bony pelvis. Mild arthritic change and joint space narrowing is seen in the left hip. There is degenerative sclerosis of the sacroiliac joints. Phleboliths are noted in the pelvis. There overlying soft tissues are normal as imaged. IMPRESSION: 1. Persistent dislocation of the right hip arthroplasty as above. 2. No fracture is seen. Electronically signed by: Fabiano Staley M.D. 01/25/2024 3:22 PM
--- NOTE | 2024-01-25 15:39 | Anesthesiology Consultation ---
Date of Service January 25, 2024 Assessment & Plan Chart Review Chart Review: Acceptable Risk for Surgery and Patient NOT seen in Pre Admission Testing Consults Requested none History Surgery Operation Date: 01/25/24 15:00 Proposed Procedures p Closed Reduction Hip - Deshaun Rodriguez MD Height/Weight Height: 6 ft Weight: 91 kg Allergies Allergy/AdvReac Type Severity Reaction Status Date / Time latex Allergy Unknown Rash at Verified 01/21/24 16:08 injection site (told d/t latex), pt uses latex glove acetaminophen AdvReac Unknown Avoids d/t Verified 01/21/24 16:08 liver Medications Home Medications Medication Instructions Recorded Confirmed Last Taken levalbuterol HCl 1.25 mg/0.5 mL 1.25 mg inhalation TID PRN 08/05/19 01/25/24 08/13/19 solution for nebulization Shortness Of Breath [id number] 1 tab PO QAM 08/05/19 01/25/24 09/16/22 tablet (Multivitamin 50 Plus tablet) CPAP Supplies #1 ea 08/02/21 01/21/24 Unknown levocetirizine 5 mg tablet 5 mg PO DAILY #30 tabs 11/18/22 01/25/24 Unknown fluticasone 100 mcg-salmeterol 50 1 inh inhalation BID PRN Shortness 11/28/22 01/25/24 Unknown mcg/dose blistr powdr for Of Breath inhalation fluticasone propionate 50 1 spray intranasal BID PRN Allergy 11/28/22 01/25/24 Unknown mcg/actuation nasal Symptoms spray,suspension lisinopril 20 1 tab PO BID #180 tabs 12/02/22 01/25/24 12/17/22 04:30 mg-hydrochlorothiazide 25 mg tablet albuterol sulfate 90 mcg/actuation 1 puff inhalation Q6H PRN 01/06/23 01/25/24 Unknown aerosol inhaler Shortness Of Breath #18 grams lisinopril 20 mg tablet 20 mg PO BID #60 tabs 03/17/23 01/25/24 Unknown Fish Oil 1 cap PO UD 05/20/23 01/25/24 Unknown ascorbic acid (vitamin C) 500 mg 500 mg PO BID 05/20/23 01/25/24 Unknown capsule zinc 1 tab PO BID 05/20/23 01/25/24 Unknown aspirin 81 mg chewable tablet 81 mg PO DAILY 05/26/23 01/25/24 Unknown (Aspirin Childrens) baclofen 20 mg tablet 20 mg PO BID #60 tabs 05/26/23 01/25/24 Unknown latanoprost 0.005 % eye drops 1 drp ophthalmic (eye) QPM 05/26/23 01/25/24 Unknown nystatin 100,000 unit/mL oral 5 ml PO Q6H #200 mL 06/04/23 01/25/24 Unknown suspension diclofenac sodium 1 % topical gel 2 g topical QID PRN pain, moderate 06/06/23 01/25/24 Unknown #100 grams oxybutynin chloride 5 mg tablet 5 mg PO DAILY #90 tabs 06/09/23 01/25/24 Unknown diazepam 5 mg tablet (Valium) 5 mg PO TID PRN muscle spasm #90 09/05/23 01/25/24 Unknown tabs silver sulfadiazine 1 % topical 1 applic topical DAILY #25 grams 10/01/23 01/25/24 Unknown cream (Silvadene) clonidine HCl 0.1 mg tablet 0.1 mg PO TID PRN hypertensive 10/29/23 01/25/24 Unknown emergency #90 tabs levothyroxine 125 mcg tablet See Rx Instructions .Route 11/04/23 01/25/24 Unknown .COMPLEX #90 tabs armodafinil 250 mg tablet (Nuvigil) 250 mg PO QAM #90 tabs 11/18/23 01/25/24 Unknown metoprolol tartrate 50 mg tablet 50 mg PO BID #180 tabs 11/24/23 01/25/24 Unknown ibuprofen 600 mg tablet 600 mg PO Q6H PRN pain #120 tabs 12/03/23 01/25/24 Unknown oxycodone 20 mg tablet 20 mg PO QID PRN pain 30 days #120 01/01/24 01/25/24 Unknown tabs tamsulosin 0.4 mg capsule 0.4 mg PO DAILY #30 caps 01/13/24 01/25/24 Unknown doxepin 10 mg capsule 10 mg PO DAILY #30 caps 01/21/24 01/25/24 Unknown amlodipine 10 mg tablet 10 mg PO HS 01/25/24 01/25/24 Unknown NPO Date Last Intake of Fluids: 01/25/24 Time Last Intake of Fluids: 10:00 Date Last Intake of Solids: 01/24/24 Time Last Intake of Solids: 19:00 Past Medical History Medical History Daytime somnolence Using Nuvigil daily Diverticulosis Hx of hepatitis C Treated/cleared "years ago" Hypertension Sleep apnea CPAP (compliant) Past Family History Family History Father Family history of diabetes mellitus Heart disease Hypertension Myocardial infarction Diabetes Mother FHx: ovarian cancer Cancer Denies family history of Ovarian cancer Prostate cancer Past Surgical History Surgical History H/O neck surgery History of total hip replacement Slow to wake up after anesthesia History of bronchoscopy SEVERAL Hx of wisdom tooth extraction History of surgery LIPOMA EXCISION FROM BACK History of colonoscopy Hx of cardiac cath 12+ YEARS AGO > NO STENTS Social History Smoking Status: Former smoker Do You Dip or Chew Tobacco: No Hx Alcohol Use: Yes Alcohol type: hard liquor alcohol intake frequency: a few times a month Hx Substance Use: No substance use type: does not use Physical Exam Vital Signs Last Vital Signs Temp 36.8 C 01/25/24 11:44 Pulse 60 01/25/24 14:43 Resp 15 01/25/24 14:43 BP 200/95 H 01/25/24 14:43 Pulse Ox 96 01/25/24 14:43 O2 Del Method Room Air 01/25/24 14:43 O2 Flow Rate 4 01/25/24 14:28 ENMT Thyromental Distance: > or= 3.5 Finger Breadths Mallampati Class: I Testing Laboratory Results 01/25/24 11:48 01/25/24 11:48 PT 11.2 Seconds (9.0-12.0) 01/25/24 11:48 INR 1.0 (0.9-1.1) 01/25/24 11:48 APTT 27 Seconds (21-31) 01/25/24 11:48
[2024-01-25] MEDS: fentaNYL citrate PF 100 MCG/2 ML VIAL ONE (15:43)
[2024-01-25] MEDS ORDERED: ATROPINE SULFATE 0.1 MG/ML 10ML SYR IV PRN (15:45)
[2024-01-25] MEDS ORDERED: ePHEDrine sulfate 50 MG/ML AMP IV PRN (15:45)
[2024-01-25] MEDS ORDERED: ONDANSETRON INJ 2 MG/ML 2 ML VIAL ONE (16:07)
[2024-01-25] MEDS ORDERED: SUGAMMADEX SODIUM 200 MG/2 ML VIAL IV ONE (16:13)
--- NOTE | 2024-01-25 16:26 | Operative Report ---
Post Operative Report Pre & Post Diagnosis Operation Date: 01/25/24 15:00 <No data on this case meets the specified criteria> Dislocated right total hip replacement I identified the patient and participated in the time-out.: Yes Procedure Operation Date: 01/25/24 15:00 Actual Procedures p Closed Reduction Hip(Right) - Deshaun Rodriguez MD Surgeon Deshaun Rodriguez MD Window And Door Installer Betsey Holbrook physicians assistant press operator no resident or fellow available Estimated Blood Loss 0 Findings Consistent with Post-Op Diagnosis Specimens None Anesthesia Type General Complications none Disposition Accompanied Patient To Recovery: No Disposition: Recovery Room Indications Patient 68 years old. Had a right total hip replacement done by Dr. Maciel 4 years ago. He dislocated his right hip in the shower. It could not be reduced in the emergency room. He is taken to the OR for closed reduction under anesthesia and paralysis. Description of Procedure Informed consent. Patient identified. He identified the procedure site as the right hip. I marked with my initials. Preop antibiotics were not indicated. He was taken to the operating room positioned supine after administration of the anesthetic. The right leg was shortened and externally rotated. An AP image confirmed superior dislocation of the right hip. I placed the leg into the position of 90 degrees of hip flexion. With gentle traction in this position the hip relocated within a matter of seconds. The hip was then stable to flexion to 90 and neutral rotation with internal rotation to about 10 degrees. In slight abduction the hip was stable to internal rotation of 30 degrees. AP and lateral images with the fluoroscope confirmed concentric reduction and no evidence of complication such as fracture or component damage. Fluoroscopic guidance was utilized throughout the surgical procedure. DVT prophylaxis was not indicated. Patient awakened from anesthesia without difficulty. Taken to recovery in stable condition. Prior to leaving the operating room a hip abduction pillow was placed. There were no specimens or complications. There were no counts or blood loss. At the conclusion of the procedure I spoke to the patient's informed her my findings and discussed the postoperative plan. Admit to the hospital. Obtain hip abduction brace tomorrow. He can then be discharged and follow-up with his operative surgeon. I attest to the content of the Intraoperative Record and any orders documented therein. Any exceptions are noted below.
--- NOTE | 2024-01-25 16:41 | Fluoroscopy Report ---
INTRAOPERATIVE RADIOGRAPHS CLINICAL HISTORY: Reduction of a dislocated right hip arthroplasty. Fluoro time: 10 seconds Ka,r: 3.88 mGy FINDINGS: 4 spot fluoroscopic views of the right hip are correlated with radiograph performed the 02/04/2024. The images show successful reduction of the dislocated right hip arthroplasty with r estoration of near-anatomic alignment. There is no evidence of fracture on these fluoroscopic images. IMPRESSION: Intraoperative images showing reduction of a dislocated right hip arthroplasty. Electronically signed by: Fabiano Staley M.D. 01/25/2024 4:40 PM
[2024-01-25] MEDS: fentaNYL citrate PF 100 MCG/2 ML VIAL IV PRN (17:22)
[2024-01-25] MEDS ORDERED: FLUTICASONE/VILANTEROL 100/25MCG 14 PUFFS/INHALER INH PRN (18:07)
[2024-01-25] MEDS ORDERED: ONDANSETRON INJ 2 MG/ML 2 ML VIAL IV PRN (18:07)
[2024-01-25] MEDS ORDERED: LEVALBUTEROL 1.25 MG/3 ML NEB INH PRN (18:07)
[2024-01-25] MEDS ORDERED: NALOXONE HCL 0.4 MG/1 ML VIAL/CARP IV PRN (18:07)
[2024-01-25] MEDS ORDERED: HYDROmorphone INJ 0.5 MG/0.5 ML SYR IV PRN (18:07)
[2024-01-25] MEDS ORDERED: FLUTICASONE PROPIONATE NA SPR 16 GM BTL NAE PRN (18:07)
[2024-01-25] MEDS ORDERED: ALBUTEROL HFA 8 GM INHALER INH PRN (18:07)
--- NOTE | 2024-01-25 18:39 | Anesthesiology Progress Note ---
Date of Service January 25, 2024 Anesthesia Post Procedure Vital Signs Vital Signs: Temp Pulse Pulse Resp BP BP Pulse Ox 01/25/24 18:07 36.8 C 64 18 143/83 H 93 01/25/24 18:00 36.6 C 60 18 143/81 H 93 01/25/24 17:40 61 14 153/84 H 97 01/25/24 17:25 64 20 166/85 H 95 01/25/24 17:10 56 L 12 166/85 H 93 01/25/24 16:55 56 L 12 170/81 H 95 01/25/24 16:45 36.6 C 57 L 16 163/83 H 98 01/25/24 16:35 60 22 145/94 H 100 01/25/24 16:28 36.1 C L 74 16 178/86 H 100 01/25/24 14:43 60 15 200/95 H 96 01/25/24 14:38 61 14 203/97 H 98 01/25/24 14:33 60 15 180/100 H 96 01/25/24 14:28 60 30 H 150/95 H 100 01/25/24 14:23 61 24 153/95 H 99 01/25/24 14:18 55 L 14 180/80 H 100 01/25/24 14:13 59 L 14 173/85 H 100 01/25/24 14:08 61 19 200/101 H 99 01/25/24 12:12 55 L 01/25/24 11:44 36.8 C 65 20 213/98 H 96 O2 Del Method O2 Flow Rate 01/25/24 18:07 Room Air 01/25/24 18:00 Room Air 01/25/24 17:40 Room Air 01/25/24 17:25 Room Air 01/25/24 17:10 Room Air 01/25/24 16:55 Room Air 01/25/24 16:45 Room Air 01/25/24 16:35 Nasal Cannula 5 01/25/24 16:28 Non-rebreather 10 01/25/24 14:43 Room Air 01/25/24 14:38 Room Air 01/25/24 14:33 Room Air 01/25/24 14:28 Nasal Cannula 01/25/24 14:23 Nasal Cannula 4 01/25/24 14:18 Non-rebreather 15 01/25/24 14:13 Non-rebreather 15 01/25/24 14:08 Non-rebreather 01/25/24 12:12 01/25/24 11:44 Room Air Pain Intensity Right Hip: Pain Intensity: 4 Transfer of Care Handoff Completed per policy Notes Mental Status: alert / awake / arousable Patient Amnestic to Procedure: Yes Nausea / Vomiting: adequately controlled Pain: adequately controlled Airway Patency, RR, SpO2: stable & adequate BP & HR: stable & adequate Hydration State: stable & adequate Anesthetic Complications: no major complications apparent and Pt Satisfied with anesthetic care
[2024-01-25] MEDS: SODIUM CHLORIDE 0.9% 1,000 ML IV SCH (18:44)
--- NOTE | 2024-01-25 19:01 | Emergency Department Note ---
Pre Sedation Assessment Vital Signs Temp Pulse Pulse Resp BP BP Pulse Ox 01/25/24 16:28 36.1 C L 74 16 178/86 H 100 01/25/24 14:43 60 15 200/95 H 96 01/25/24 14:38 61 14 203/97 H 98 01/25/24 14:33 60 15 180/100 H 96 01/25/24 14:28 60 30 H 150/95 H 100 01/25/24 14:23 61 24 153/95 H 99 01/25/24 14:18 55 L 14 180/80 H 100 01/25/24 14:13 59 L 14 173/85 H 100 01/25/24 14:08 61 19 200/101 H 99 01/25/24 12:12 55 L 01/25/24 11:44 36.8 C 65 20 213/98 H 96 O2 Del Method O2 Flow Rate 01/25/24 16:28 Non-rebreather 10 01/25/24 14:43 Room Air 01/25/24 14:38 Room Air 01/25/24 14:33 Room Air 01/25/24 14:28 Nasal Cannula 4 01/25/24 14:23 Nasal Cannula 4 01/25/24 14:18 Non-rebreather 15 01/25/24 14:13 Non-rebreather 15 01/25/24 14:08 Non-rebreather 15 01/25/24 12:12 01/25/24 11:44 Room Air Cardiovascular RRR, no murmur, no edema + S1 normal no JVD + capillary refill normal Respiratory normal respiratory effort, lungs clear to auscultation + respiratory effort normal + clear to auscultation bilaterally Pre-Sedation Airway Assessment Smoking Status: Never smoker Hx Sleep Apnea: No Short, Thick Neck: No Thyromental Distance: > or= 3.5 Finger Breadths Oral Cavity: + WNL Mallampati Class: II ASA: ASA3 NPO Status Date of Last Intake of Fluids: 01/25/24 Time of Last Intake of Fluids: 10:00 Last Oral Intake of Fluids Comment: Gatorade Date of Last Intake of Solid Food: 01/24/24 Time of Last Intake of Solid Foods: 19:00 Procedure Planning Contraindications for Sedation: none Current Medications Reviewed: Yes Notes The planned sedation has been discussed with the patient. Informed Consent was obtained. I have identified the patient, determined the appropriateness of sedation and have assessed the patient immediately prior to the procedure. All medicine(s) and interventions are by my order.
--- NOTE | 2024-01-25 19:03 | Emergency Department Note ---
Post Sedation Assessment Vital Signs Temp Pulse Pulse Resp BP BP Pulse Ox 01/25/24 16:28 36.1 C L 74 16 178/86 H 100 01/25/24 14:43 60 15 200/95 H 96 01/25/24 14:38 61 14 203/97 H 98 01/25/24 14:33 60 15 180/100 H 96 01/25/24 14:28 60 30 H 150/95 H 100 01/25/24 14:23 61 24 153/95 H 99 01/25/24 14:18 55 L 14 180/80 H 100 01/25/24 14:13 59 L 14 173/85 H 100 01/25/24 14:08 61 19 200/101 H 99 01/25/24 12:12 55 L 01/25/24 11:44 36.8 C 65 20 213/98 H 96 O2 Del Method O2 Flow Rate 01/25/24 16:28 Non-rebreather 10 01/25/24 14:43 Room Air 01/25/24 14:38 Room Air 01/25/24 14:33 Room Air 01/25/24 14:28 Nasal Cannula 4 01/25/24 14:23 Nasal Cannula 4 01/25/24 14:18 Non-rebreather 15 01/25/24 14:13 Non-rebreather 15 01/25/24 14:08 Non-rebreather 15 01/25/24 12:12 01/25/24 11:44 Room Air Recovery Score Activity: Moves 4 extremities Respiration: Deep Breath/Cough Circulation: +/-20% PreAnes Value Consciousness: Fully Awake Oxygen Saturation: > 92% On Room Air Post Anesthesia Score: 10 Discharge Sedation Level of Care: Fast Track Phase II Unexpected Event: None Post Sedation Plan On clinical assessment, the patient appears to have tolerated the sedation without complications. Patient is recovering as anticipated. Patient will continue to be monitored by nursing and may be discharged when sedation discharge criteria are met per below protocol. Upon Completions of procedure up to 15 minutes continue every 5 minute vital signs and the P.A.R. score; then discharge to a Phase I or Fast Track to Phase II per the following guidelines: * Discharge Patient to appropriate Phase II area if PAR is 8 or greater or return to pre- procedure baseline. The post - procedure orders will be as directed. * If PAR score is less than 8 or not return to pre-procedure baseline then patient will follow Phase I monitoring till PAR is reached for Phase II. The Phase I may be done in procedure room or may call to secure a Phase I area. * If naloxone or flumazenil are used for reversal, hold in Phase I for continued monitoring from when last reversal dose was given for a minimum of 60 minutes or longer pending the nurse and/or physician discretion of patient condition before discharge to Phase II. Please call the Sedation Physician to re-evaluate and complete post-note for discharge to Phase II area. Do NOT discharge from procedure sedation or Phase 1 until post- sedation evaluation note is complete by procedure /sedation MD Sedation Discharge Instructions to be given to the patient at discharge to home. Sedation Data Time Out Team Members Agree on the Following: Correct Patient, Correct Procedure, Correct Site-Side and Allergies Verified Site Marking Visible after Draping: Yes Team Agrees: Yes Sedation Times Sedation Start Date: 01/25/24 Sedation Start Time: 14:08 Sedation End Date: 01/25/24 Sedation End Time: 14:33 Total Sedation Time: 25 Procedure Times Procedure Start Time:: 14:10 Procedure End Time: 14:25
[2024-01-25] MEDS: MoRPHine SULFATE 4 MG/ML 1 ML CARP\\VIAL IV STA (19:05)
--- NOTE | 2024-01-25 19:55 | XRay Report ---
RIGHT HIP 2 VIEWS CLINICAL HISTORY: Status post reduction of a dislocated hip arthroplasty. FINDINGS: AP and crosstable lateral views of the right hip are compared to studies performed earlier the same day 02/04/2024. The skeletal structures are osteopenic. A bipolar right hip arthroplasty is i n near anatomic alignment. No periprosthetic lucency is seen. No fracture is identified in the right hip or the visualized right hemipelvis. The overlying soft tissues are normal as imaged. IMPRESSION: 1. The right hip arthroplasty is in near anatomic alignment. 2. No fracture is seen. Electronically signed by: Fabiano Staley M.D. 01/25/2024 7:54 PM
[2024-01-25] MEDS: oxyCODONE HCL IR 5 MG TAB (IMMEDIATE RELEASE) PO PRN (19:59)
[2024-01-25] MEDS: BACLOFEN 20 MG TAB PO SCH (20:00)
[2024-01-25] MEDS: ASPIRIN 81 MG ECTAB PO SCH (20:00)
[2024-01-25] MEDS: amLODIPine BESYLATE 5 MG TAB PO SCH (20:01)
[2024-01-25] MEDS: LATANOPROST 0.005% OP SOLN 2.5 ML BTL OP SCH (20:01)
[2024-01-25] MEDS: METOPROLOL TARTRATE 50 MG TAB PO SCH (20:01)
[2024-01-25] MEDS: lisinopril 20 MG TAB PO SCH (20:02)
[2024-01-25] MEDS: ZINC SULFATE 220 MG CAPSULE PO SCH (20:02)
[2024-01-25] MEDS: ASCORBIC ACID 500 MG TAB PO SCH (20:02)
[2024-01-25 20:56] LABS: Appearance Urine Clear (Clear); Bilirubin Urine Negative (Negative); Blood Urine Negative (Negative); Color Urine Yellow; Glucose Urine UA Negative (Negative); Ketones Urine Negative (Negative); Leukocyte Esterase Urine Negative (Negative); Nitrite Urine Negative (Negative); Protein Urine Negative (Negative); Specific Gravity Urine 1.009 (1.000-1.030); Urobilinogen Urine Negative (Negative)
[2024-01-25] MEDS ORDERED: LISINOPRIL/HCTZ 20/25MG 1 TAB PO SCH (21:00)
[2024-01-25] MEDS: COUGH DROP (SUGAR FREE) LOZ 24 LOZ/1 BOX BUCCAL PRN (21:12)
[2024-01-25] MEDS: HYDROmorphone INJ 1 MG/ML SYRINGE IV PRN (23:02)
[2024-01-26] MEDS: LEVOTHYROXINE SODIUM 125 MCG TABLET PO SCH (05:45)
[2024-01-26] MEDS: oxyBUTYnin chloride 5 MG TAB PO SCH (08:03)
[2024-01-26] MEDS: DOXEPIN HCL 10 MG CAPSULE PO SCH (08:03)
[2024-01-26] MEDS: CEROVITE ADV FORMULA TAB PO SCH (08:04)
[2024-01-26] MEDS: OMEGA-3 (PURIFIED FISH OIL) 1 GM CAP PO SCH (08:04)
[2024-01-26] MEDS: TAMSULOSIN HCL 0.4 MG CAP PO SCH (08:04)
[2024-01-26] MEDS: CETIRIZINE HCL 10 MG TABLET PO SCH (08:04)
--- NOTE | 2024-01-26 09:16 | Discharge Summary ---
Date of Service January 26, 2024 Discharge Data Consultations 01/25/24 14:58 Consult Orthopedic Surgery Stat Procedures Performed Operation Date: 01/25/24 15:00 Actual Procedures p Closed Reduction Hip(Right) - Deshaun Rodriguez MD Hospital Course (1) Hip dislocation, right: Patient presented to the emergency room on January 25, 2024 with complaints of right hip dislocation. Attempted closed reductions were performed in the emergency room by the ER physician without success. A consultation was placed for Dr. Rodriguez due to his right total hip dislocation. He was taken to the operating room where a closed reduction was performed under general anesthesia. His procedure was performed on January 25, 2024. His procedure went well without any intraoperative complications. An abduction pillow was placed between his knees. He was kept in [facility] in observation to be able to get it and hip abduction brace made by the orthotics group on January 25, 2023. He was allowed out of bed, weight-bear as tolerated on the right lower extremity. Reinforced total hip precautions on the right hip. His home medications were continued. He was given a regular diet. His vital signs remained stable during his inpatient stay. Ice and elevate as needed for pain and swelling. SACHA stockings in bilateral lower extremities for compression. AV impulse boots during his inpatient stay. He was placed on aspirin 81 mg p.o. twice daily for DVT prophylaxis. He should do this for approximately 4 weeks after his proced ure. Physical therapy and Occupational Therapy consults were placed. He was to have the abduction pillow between his knees when in bed as well as when sitting in a chair until the hip abduction brace was obtained. Settings on the hip abduction brace were to 70 degrees of flexion. He did well out of bed with physical therapy and Occupational Therapy. Once the hip abduction brace was obtained he was discharged to his home in stable condition. Discharge instructions were reviewed. He is to follow-up with his original orthopedic surgeon. Follow-up with Dr. Rodriguez as needed. Reinforced hip precautions multiple times. Patient understands and agrees with the plan.
--- NOTE | 2024-01-26 10:56 | Electrocardiogram Report ---
Test Reason : Blood Pressure : / mmHG Vent. Rate : 061 BPM Atrial Rate : 061 BPM P-R Int : 228 ms QRS Dur : 102 ms QT Int : 410 ms P-R-T Axes : 031 012 040 degrees QTc Int : 412 ms Sinus rhythm with 1st degree A-V block Low voltage QRS Possible Inferior infarct (cited on or before 21-MAY-2023) Poor R wave progression, consider anterior MN vs. lead placement vs. LVH Abnormal ECG When compared with ECG of 21-MAY-2023 01:27, No significant change was found Confirmed by Isaac Martinez ([id number]) on 01/26/2024 10:56:00 AM Referred By: REFERRED SELF Confirmed By:Tony Martinez
--- NOTE | 2024-01-26 11:08 | Orthopedic Progress Note ---
Date of Service January 26, 2024 Assessment & Plan Admission and Anticipated Discharge Date Admission Date: January 25, 2024 Orthopedic Progress Note Seen status post closed reduction right hip dislocation. Radiographs of the right hip done postreduction show anatomic alignment concentric reduction and no periprosthetic fracture. He was up with PT. We discussed total hip precautions. He will get a hip abduction brace today and then can be discharged home and follow-up with Dr. Maciel. Pillow between his knees at all times. He may weight-bear as tolerated. He had 5 out of 5 ankle and toe plantarflexion dorsiflexion inversion eversion strength 1+ palpable DP and PT pulses and normal sensation.Pain much improved.
== END 2024-01-26 17:25 | disposition home or self-care (01) ==
LOC: ED 11:37 → OR 15:39 → 3W 15:39

== ENCOUNTER 2025-03-31 08:14 | Inpatient (IN) ==
--- NOTE | 2025-03-31 08:25 | Emergency Department Note ---
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 IV ONE ONE Stop: 03/31/25 18:14 Last Infusion: 03/31/25 18:49 Dose: Infused Documented By: Admin: 03/31/25 16:50 Dose: 50 mls/hr Documented By: SE Methylprednisolone (Methylprednisolone 125 Mg/2 Ml Vial) 125 mg IV NOW STA Stop: 03/31/25 08:33 Last Admin: 03/31/25 08:53 Dose: 125 mg Documented By: misael Ondansetron HCl (Ondansetron Inj 2 Mg/Ml 2 Ml Vial) Confirm Administered Dose 4 mg .ROUTE .STK-MED ONE Stop: 03/31/25 08:48 Last Admin: 03/31/25 08:54 Dose: 4 mg Documented By: misael Oxycodone HCl (Oxycodone Hcl Ir 5 Mg Tab (Immediate Release)) 20 mg PO NOW STA Stop: 03/31/25 11:26 Last Admin: 03/31/25 11:37 Dose: 20 mg Documented By: misael Sodium Chloride (Sodium Chloride 0.65% Na Soln 45 Ml (Cache)) 2 sprays NA NOW ONE Stop: 03/31/25 08:33 Last Admin: 03/31/25 08:53 Dose: 2 sprays Documented By: misael Imaging Data Radiologist's Impression: Chest X-Ray 03/31/25 08:24 XR chest 1V portable CLINICAL HISTORY: Sepsis COMPARISON STUDY: 06/24/2023 FINDINGS: The heart is minimally enlarged. There is slight elevation of interstitium. There is no pathologic adenopathy in this AP film. There are no pleural effusions. There is no lobar consolidation IMPRESSION: 1. Subtle mild elevation of the interstitium. This could indicate minimal edema or an interstitial inflammatory process. There is no focal pulmonary consolidation. ACT 112: Negative or not required by law. Electronically signed by: Earl Jessica M.D. 03/31/2025 8:49 AM Discharge Plan Visit Data Chief Complaint: Flu Like Symptoms Stated Complaint: COUGHING, FEVER, CANT BREATH ED Provider: Donavan Ledesma Discharge Problem: Pneumonia, COPD (chronic obstructive pulmonary disease), Hypomagnesemia, Infection due to human metapneumovirus (hMPV) Patient Disposition: Admitted As Inpatient Condition: Fair Discharge Instructions Interventions: ED Discharge Assessment Last Done: 03/31/25 15:46 Discharge Problem: Pneumonia Qualifiers: Pneumonia type: due to unspecified organism Laterality: bilateral Lung location: unspecified part of lung Qualified Code(s): J18.9 - Pneumonia, unspecified organism COPD (chronic obstructive pulmonary disease) Qualifiers: COPD type: COPD with acute lower respiratory infection Qualified Code(s): J44.0 - Chronic obstructive pulmonary disease with (acute) lower respiratory infection
[2025-03-31] MEDS: ACETAMINOPHEN 1,000 MG/100 ML VIAL IV STA (08:51)
--- NOTE | 2025-03-31 08:51 | XRay Report ---
XR chest 1V portable CLINICAL HISTORY: Sepsis COMPARISON STUDY: 06/24/2023 FINDINGS: The heart is minimally enlarged. There is slight elevation of interstitium. There is no pat hologic adenopathy in this AP film. There are no pleural effusions. There is no lobar consolidation IMPRESSION: 1. Subtle mild elevation of the interstitium. This could indicate minimal edema or an interstitial in flammatory process. There is no focal pulmonary consolidation. ACT 112: Negative or not required by law. Electronically signed by: Earl Jessica M.D. 03/31/2025 8:49 AM
[2025-03-31] MEDS: SODIUM CHLORIDE 0.65% NA SOLN 45 ML (OCEAN) ONE (08:53)
[2025-03-31] MEDS: guaiFENesin 600 MG TABCR PO STA (08:53)
[2025-03-31] MEDS: ONDANSETRON INJ 2 MG/ML 2 ML VIAL ONE (08:54)
[2025-03-31] MEDS: ALBUT/IPRATROP 3MG/0.5MG NEB 3 ML VIAL NEB STA (08:54)
[2025-03-31] MEDS: SODIUM CHLORIDE 0.9% 1,000 ML IV SCH (08:55)
[2025-03-31 09:03] LABS: Hematocrit (blood only) 44.0 % (42.0-52.0); Hemoglobin 15.3 g/dl (14.0-18.0); Mean Corpuscular Hemoglobin 31.7 pg (25.0-34.0); Mean Corpuscular Volume 91.3 fL (80.0-100.0); Platelet Count 161 K/uL (130-400); RDW Standard Deviation 42.3 fL (36.4-46.3); Red Blood Count 4.82 M/uL (4.70-6.10); White Blood Count 8.90 K/ul (4.8-10.8)
[2025-03-31 09:20] LABS: Alanine Aminotransferase 25.0 U/L (7-52); Alkaline Phosphatase 119.0 U/L (34-104); Anion Gap 9.0 (3-11); Bilirubin,Total 0.5 mg/dl (0.2-1.0); Blood Urea Nitrogen 19.0 mg/dl (6-23); Calcium 9.2 mg/dl (8.6-10.3); Carbon Dioxide 29.0 mmol/L (21-32); Chloride 100.0 mmol/L (98-107); Creatinine Clr Calc Pharmacy 103.3 ml/min; Glucose 123.0 mg/dl (70-99(Fasting)); Lipase 12.0 U/L (11-82); Magnesium 1.6 mg/dl (1.7-2.4); Potassium 3.5 mmol/L (3.5-5.1); Sodium 138.0 mmol/L (136-145); Total Protein 8.1 gm/dl (6.0-8.3)
[2025-03-31 09:23] LABS: Immature Granulocytes # (auto) 0.03 K/uL (0.01-0.20); Immature Granulocytes % (auto) 0.3 %
[2025-03-31 09:32] LABS: INR 1.0 (0.9-1.1); Prothrombin Time 11.1 Seconds (9.0-12.0)
[2025-03-31] MEDS: SODIUM CHLORIDE 0.9% 500 ML IV ONE (09:54)
[2025-03-31] MEDS: cefTRIAXone SODIUM 2,000 MG/50 ML BAG IV STA (09:54)
[2025-03-31 10:26] LABS: Appearance Urine Clear (Clear); Glucose Urine UA Negative (Negative)
--- NOTE | 2025-03-31 11:05 | Electrocardiogram Report ---
Test Reason : Blood Pressure : */* mmHG Vent. Rate : 93 BPM Atrial Rate : 93 BPM P-R Int : 186 ms QRS Dur : 102 ms QT Int : 362 ms P-R-T Axes : 39 -37 45 degrees QTcB Int : 450 ms Normal sinus rhythm Left axis deviation Inferior infarct (cited on or before 21-May-2023) Poor R wave progression, consider anterior VA vs. lead placement vs. LVH Abnormal ECG When compared with ECG of 25-Jan-2024 11:46, MS interval has decreased Vent. rate has increased by 32 bpm QRS axis Shifted left Confirmed by Kd Ochoa ([id number]) on 03/31/2025 11:05:07 AM Referred By: Confirmed By: Kd Ochoa
[2025-03-31 11:13] LABS: Chlamydia pneumoniae PCR Not Detected (NotDetected); Coronavirus 229E PCR Not Detected (NotDetected); Coronavirus CoV-2 (COVID19)PCR Not Detected (NotDetected); Coronavirus HKU1 PCR Not Detected (NotDetected); Coronavirus NL63 PCR Not Detected (NotDetected); Coronavirus OC43PCR Not Detected (NotDetected); Human Metapneumovirus PCR DETECTED (NotDetected); Parainfluenza Virus 1 PCR Not Detected (NotDetected); Parainfluenza Virus 2 PCR Not Detected (NotDetected); Parainfluenza Virus 3 PCR Not Detected (NotDetected); Parainfluenza Virus 4 PCR Not Detected (NotDetected); Respiratory Syncytial VirusPCR Not Detected (NotDetected); Rhinovirus/Enterovirus PCR Not Detected (NotDetected)
[2025-03-31] MEDS: DOXYCYCLINE HYCLATE 100 MG in DEXTROSE 5% MINI-B 100 ML IV STA (11:22)
[2025-03-31] MEDS: MAGNESIUM SULFATE / D5W 1 GM/100 ML BAG IV STA (11:22)
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
[2025-03-31] MEDS ORDERED: GLUCAGON FOR INJ 1 MG VIAL SQ PRN (15:45)
[2025-03-31] MEDS ORDERED: FLUTICASONE PROPIONATE NA SPR 16 GM BTL PRN (15:45)
[2025-03-31] MEDS ORDERED: CARBOHYDRATES FOR HYPOGLYCEMIA PO PRN (15:45)
[2025-03-31] MEDS ORDERED: GLUCOSE 40% GEL 15 GM TUBE PO PRN (15:45)
[2025-03-31] MEDS ORDERED: ONDANSETRON INJ 2 MG/ML 2 ML VIAL IV PRN (15:45)
[2025-03-31] MEDS ORDERED: ACETAMINOPHEN 325 MG TAB PO PRN (15:45)
[2025-03-31] MEDS ORDERED: DEXTROSE 50% 50 ML SYRINGE IV PRN (15:45)
[2025-03-31] MEDS ORDERED: DICLOFENAC SOD 1% GEL 100 GM TUBE EXT PRN (15:45)
[2025-03-31] MEDS ORDERED: GLUCOSE 10 TAB/TUBE PO PRN (15:45)
[2025-03-31] MEDS: ALBUT/IPRATROP 3MG/0.5MG NEB 3 ML VIAL NEB SCH (16:22)
[2025-03-31] MEDS: AZITHROMYCIN 500 MG/255 ML BAG IV SCH (16:50)
[2025-03-31] MEDS: MAGNESIUM SULFATE / D5W 1 GM/100 ML BAG IV ONE (16:50)
[2025-03-31] MEDS: ENOXAPARIN INJ 40 MG/0.4 ML SYR SQ SCH (16:50)
[2025-03-31] MEDS: CEFEPIME 2000MG 2,000 MG/20 ML SYR IV SCH (17:32)
[2025-03-31] MEDS: INSULIN ASPART PER UNIT CHARGE SC SCH (17:33)
[2025-03-31] MEDS: METOPROLOL TARTRATE 50 MG TAB PO SCH (20:42)
[2025-03-31] MEDS: ASPIRIN 81 MG ECTAB PO SCH (20:43)
[2025-03-31] MEDS: MIRTAZAPINE TAB 15 MG TAB PO SCH (20:43)
[2025-03-31] MEDS: LATANOPROST 0.005% OP SOLN 2.5 ML BTL OP SCH (20:44)
[2025-03-31] MEDS ORDERED: NON-FORMULARY MEDICATION (Zinc 50 mg Tablet) PO SCH (21:00)
[2025-04-01] MEDS: LEVOTHYROXINE SODIUM 125 MCG TABLET PO SCH (05:00)
[2025-04-01 06:19] LABS: Hematocrit (blood only) 38.5 % (42.0-52.0); Hemoglobin 13.6 g/dl (14.0-18.0); Mean Corpuscular Hemoglobin 32.5 pg (25.0-34.0); Mean Corpuscular Volume 91.9 fL (80.0-100.0); Platelet Count 167 K/uL (130-400); RDW Standard Deviation 43.1 fL (36.4-46.3); Red Blood Count 4.19 M/uL (4.70-6.10); White Blood Count 12.62 K/ul (4.8-10.8)
[2025-04-01 06:38] LABS: Anion Gap 6.0 (3-11); Blood Urea Nitrogen 16.0 mg/dl (6-23); Calcium 8.5 mg/dl (8.6-10.3); Carbon Dioxide 29.0 mmol/L (21-32); Chloride 104.0 mmol/L (98-107); Creatinine Clr Calc Pharmacy 103.3 ml/min; Glucose 136.0 mg/dl (70-99(Fasting)); Magnesium 2.1 mg/dl (1.7-2.4); Potassium 3.9 mmol/L (3.5-5.1); Sodium 139.0 mmol/L (136-145)
--- NOTE | 2025-04-01 07:52 | Hospitalist Progress Note ---
Date of Service April 01, 2025 Assessment & Plan (1) Pneumonia: (2) Hypertension: (3) Chronic obstructive pulmonary disease: (4) Hyperglycemia: Plan 69 M with history of HTN, hyperglycemia who presents with fever and clinical exam consistent with pneumonia that has failed outpt treatment. Concern for Gram negative pneumonia. #Pneumonia, human metapneumovirus pneumonia will continue azithromycin to cover atypical pneumonia, and provide anti-inflammatory effects continue to provide supportive care, blood cultures obtained, patient still fairly dyspneic with conversation #COPD, will use iv steroids as has wheezes and increased work of breathing, accessory muscle use, start with kendy duonebs, cpap, and follow for oxygen need. This is likely chronic respiratory failure exacerbated by his human metapneumovirus infection transition oral steroids on 04/02/2025 #HTN pt without sepsis, continue metoprolol lisinopril amlodipine, with regard to elevated troponin on presentation , repeat without significant change and ecg without acute changes to be concerned for ACS, will repeat in am however feel this is demand ischemia from illness, replete Hypomagnesemia with parenteral magnesium # chronic pain from msk, pt has disloc hip prosthesis in past, multiple sites of chronic pain, continue baclofen, oxycodone and prn diazepam #BPH pt has tamsulosin and oxybutynin #Mental health continues mirtazapine for depression and Nuvigil for daytime sleepiness ( also cpap) DVT prevention is lovenox Admission and Anticipated Discharge Date Admission Date: March 31, 2025 Subjective Patient feels improved. Still coughing but nonproductive. Has not had a subjective fever is present at bedside and updated Physical Exam Physical Exam: The patient appeared well nourished and normally developed. Vital signs as documented. No fever since 10 AM on 03/31/2024 Oropharynx without exudate Neck is without JVD, thyromegaly, or carotid bruits. Lungs remain with coarse rhonchi bilaterally worse at the bases nonproductive cough Cardiac exam, Rhythm is regular.. No murmurs, rubs or gallops. Abdominal exam reveals normal bowel sounds, soft non tender, no masses Extremities are nonedematous and both pedal pulses are present Neurologic exam is alert and oriented, no focal loss of strength or sensation Results & Data Results & Data Vital Signs (Past 12 Hours) Vital Signs Temp Pulse Pulse Resp BP Pulse Ox O2 Del Method 04/01/25 07:51 98.2 F 77 18 170/85 H 96 Room Air 04/01/25 07:14 71 18 92 Room Air 04/01/25 06:45 68 04/01/25 03:49 98.1 F 62 18 154/57 H 95 Room Air, CPAP 04/01/25 02:33 70 19 91 04/01/25 00:06 66 11 L 90 CPAP 04/01/25 00:06 66 11 L 90 03/31/25 22:31 98.1 F 71 18 115/60 92 Room Air 03/31/25 21:50 79 03/31/25 21:29 Room Air FiO2 04/01/25 07:51 04/01/25 07:14 04/01/25 06:45 04/01/25 03:49 04/01/25 02:33 04/01/25 00:06 21 04/01/25 00:06 21 03/31/25 22:31 03/31/25 21:50 03/31/25 21:29 Laboratory Results Reviewed CBC reviewed chemistry PG Care Time/CCT Total # of Minutes Spent Total Time Spent with Patient: Total time spent is greater than 50% in coordination of care (as documented) at patient's floor/unit and/or counseling patient: Coding Level of Care Code 18917 SUB INP/OBS CARE 3/50MIN Diagnoses Pneumonia J18.9 Hypertension I10 Hypertension type: unspecified Chronic obstructive pulmonary disease J44.9 Hyperglycemia R73.9 (2) Hypertension Hypertension type: unspecified Qualified Code(s): I10 - Essential (primary) hypertension
[2025-04-01] MEDS: TAMSULOSIN HCL 0.4 MG CAP PO SCH (08:35)
[2025-04-01] MEDS: CETIRIZINE HCL 10 MG TABLET PO SCH (08:35)
[2025-04-01 08:57] LABS: Hemoglobin A1C 5.7 % (4.5-5.6)
[2025-04-02 03:35] VITALS: RESP 18
[2025-04-02 07:44] LABS: Hematocrit (blood only) 37.4 % (42.0-52.0); Hemoglobin 13.6 g/dl (14.0-18.0); Mean Corpuscular Hemoglobin 32.4 pg (25.0-34.0); Mean Corpuscular Volume 89.0 fL (80.0-100.0); Platelet Count 173 K/uL (130-400); RDW Standard Deviation 40.9 fL (36.4-46.3); Red Blood Count 4.20 M/uL (4.70-6.10); White Blood Count 11.08 K/ul (4.8-10.8)
[2025-04-02 08:31] LABS: Anion Gap 6.0 (3-11); Blood Urea Nitrogen 18.0 mg/dl (6-23); Calcium 8.7 mg/dl (8.6-10.3); Carbon Dioxide 28.0 mmol/L (21-32); Chloride 104.0 mmol/L (98-107); Creatinine Clr Calc Pharmacy 116.2 ml/min; Glucose 134.0 mg/dl (70-99(Fasting)); Magnesium 2.0 mg/dl (1.7-2.4); Potassium 4.0 mmol/L (3.5-5.1); Sodium 138.0 mmol/L (136-145)
[2025-04-02] MEDS: predniSONE 20 MG TAB PO SCH (08:50)
[2025-04-02 14:51] VITALS: BP 172/87; TEMP 98.1; O2SAT 96
[2025-04-02 14:59] VITALS: PULSE 72
--- NOTE | 2025-04-02 16:21 | Discharge Summary ---
Discharge Summary Date of Service April 02, 2025 Principal Dx & Hospital Course #1 = Principal Diagnosis (1) Pneumonia: (2) Hypertension: (3) Chronic obstructive pulmonary disease: (4) Hyperglycemia: Plan 69 M with history of HTN, hyperglycemia who presents with fever and clinical exam consistent with pneumonia that has failed outpt treatment. Concern for Gram negative pneumonia. 04/02: pt significantly improved and is conversing well. He is tolerating steroids. He is ambulating better and is on room air. He is noted to have elevated blood pressure which he attributes to his uncontrolled pain. He is also on steroids. His reported that when his BP is elevated, his PCP requests that he takes 3 of his clonidine until his BP is controlled and acute issues resolved. Then he reverts back to 2 tabs. Pt and is instructed to monitor BP twice a day at home. Increase clonidine as recommended. Outpatient follow up with PCP. From COPD standpoint, he is on prednisone taper at home which he is can complete. He is instructed to not continue doxy and complete azithro. He needs PFTs which can be done by his PCP or follow up with pulmonology #Pneumonia, human metapneumovirus pneumonia will continue azithromycin to cover atypical pneumonia, and provide anti-inflammatory effects continue to provide supportive care, blood cultures obtained #COPD, was on scheduled iv steroids as has wheezes and increased work of breathing, accessory muscle use, start with kendy duonebs, cpap, and follow for oxygen need. This is likely chronic respiratory failure exacerbated by his human metapneumovirus infection transition oral steroids on 04/02/2025. Pt was on prednisone taper 40mg with 10mg dose reduction q3 days. He completed 2 days. Instructed to resume the taper. D/c doxycycline and continue azithromycin on discharge (through 04/04- two more doses) #HTN pt without sepsis, continue metoprolol lisinopril amlodipine, with regard to elevated troponin on presentation , repeat without significant change and ecg without acute changes to be concerned for ACS, will repeat in am however feel this is demand ischemia from illness, replete Hypomagnesemia with parenteral magnesium BP remains elevated. pt's reports that he is to take clonidine 0.3mg when his BP is elevated but once the acute stress is over and BP is improved, he backs down to 2 tablets. 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 IN the ER the pt has significant abnormal pulmonary exam but not with lobar infiltrates seen on CXR, clinically cw pneumonia, failing outpt treatment, with exacerbation of chronic respiratory failure copd. Pt ahs recently restarted using home CPAP Other issues include BPH and MSK chronic pain are stable Discharge Exam Gen: no acute distress, lying in bed comfortable HEENT: NC/AT, MMM Lungs: nonlabored breathing, CTAB CVS: [id number], RRR Abd: nl bowel sounds, soft, NT / ND : no carmona Ext: no edema Neuro: AAOx3 Psych: calm cooperative Discharge Plan Discharge Items Patient Disposition: Home - Self-Care Reason For Visit: PNEUMONIA, FEVER Discharge Diagnosis: Pneumonia Condition on Discharge: Fair Activity: Resume your previous activity Non-emergency contact: Primary Care Provider Call non-emergency contact if: you have any medication questions and your symptoms worsen Follow-up/Referrals: Mike Oconnor DO [Primary Care Provider] - 04/08/25 9:20 am Katelynn Verma MD [Physician] - (further management of COPD) Diet: Heart Healthy Addtl Attending Provider Instructions: outpatient follow up with PCP in 7 to 10 days monitor blood pressure twice a day establish care with building construction foreman need pulmonary function test done Pending Studies at Discharge: No Stand-Alone Forms: [employer], Smoking Cessation Medications and DC Order Prescriptions: New azithromycin 500 mg tablet 500 mg PO DAILY 2 Days Qty: 2 0RF Rx Instructions: two more days, take in the afternoon Continued oxybutynin chloride 5 mg tablet 5 mg PO DAILY Qty: 90 3RF diclofenac sodium 1 % gel 2 g topical QID PRN (Reason: pain, moderate) Qty: 100 2RF Hold Instructions: Resume on 01/16/23. Patient Comments: 03/31- otc/no fill history unable to verify amlodipine 10 mg tablet 10 mg PO HS Qty: 90 3RF diazepam [Valium] 5 mg tablet 5 mg PO TID PRN (Reason: muscle spasm) Qty: 90 0RF Patient Comments: 03/31- last filled 09/29 30 day supply armodafinil [Nuvigil] 250 mg tablet 250 mg PO QAM Qty: 90 1RF metoprolol tartrate 50 mg tablet 50 mg PO BID Qty: 180 3RF clonidine HCl 0.1 mg tablet 0.1 mg PO TID PRN (Reason: hypertensive emergency) Qty: 90 3RF Rx Instructions: Take as needed if SBP >150 and/or DBP >90 ibuprofen 600 mg tablet 600 mg PO Q6H PRN (Reason: pain) Qty: 120 1RF fluticasone propionate 50 mcg/actuation spray,suspension 1 spray intranasal BID PRN (Reason: Allergy Symptoms) Qty: 16 3RF Rx Instructions: USE 1 SPRAY IN EACH NOSTRIL TWICE DAILY levothyroxine 125 mcg tablet 125 mcg PO DAILY Qty: 90 3RF oxycodone 20 mg tablet 20 mg PO QID PRN (Reason: pain) 30 Days Qty: 120 0RF Rx Instructions: Ongoing treatment. albuterol sulfate 90 mcg/actuation HFA aerosol inhaler 1 puff INHALATION Q6H PRN (Reason: Shortness Of Breath) Qty: 18 5RF latanoprost 0.005 % drops 0 drp ophthalmic (eye) QPM Patient Comments: 03/31- last filled 12/13 75 day supply Rx Instructions: 1 drop into both eyes at bedtime levocetirizine 5 mg tablet 5 mg PO DAILY Qty: 30 2RF ascorbic acid (vitamin C) 500 mg capsule 500 mg PO BID Patient Comments: 03/31- otc unable to verify (DME) CPAP Supplies Misc See Rx Instructions .MEDSUPPLY Qty: 1 5RF Rx Instructions: New CPAP mask. AirFit F30. Lifetime need. tamsulosin 0.4 mg capsule 0.8 mg PO DAILY Qty: 30 2RF mirtazapine 30 mg tablet 30 mg PO DAILY Qty: 30 2RF Multivitamin 50 Plus Tablet 1 tab PO QAM Patient Comments: 03/31- otc unable to verify fluticasone propion-salmeterol 100-50 mcg/dose blister with device 0 inh inhalation BID PRN (Reason: Shortness Of Breath) Patient Comments: 03/31- no fill history unable to verify silver sulfadiazine [Silvadene] 1 % cream 0 applic topical DAILY Patient Comments: 03/31- no fill history unable to verify Rx Instructions: apply a 1.5 mm thickness lisinopril 20 mg tablet 20 mg PO BID Rx Instructions: take 1 tablet by mouth twice a day aspirin 81 mg tablet,delayed release (DR/EC) 0 mg PO BID Patient Comments: 03/31- otc unable to verify baclofen 20 mg tablet 0 mg PO BID Patient Comments: 03/31- no fill history unable to verify levalbuterol HCl 1.25 mg/0.5 mL solution for nebulization 0 mg INHALATION TID PRN (Reason: Shortness Of Breath) Patient Comments: 03/31- no fill history unable to verify zinc 50 mg Tablet 1 tab PO BID Patient Comments: 03/31- otc unable to verify Fish Oil 500 mg 1 cap PO UD Patient Comments: 03/31- otc unable to verify prednisone 10 mg tablet 10 mg PO UD Rx Instructions: 4 daily for 3 days, 3 daily for 3 days, 2 daily for three days, 1 daily for 3 days. PO DAILY; Discontinued doxycycline hyclate 100 mg capsule 100 mg PO Q12H Qty: 20 0RF Discharge Orders: Discharge Order (Routine); Ordered 04/02/25 Ordered By: Dacia Song Admission Data Admit Date/Time: 03/31/25 12:12 Attending Provider: Dacia Song Admit Provider: Devante Coleman Primary Care Provider: Mike Oconnor Other Providers: Devante Coleman Hospital Stay Data Consultations 03/31/25 10:44 ED Decision to Admit Stat Discharge Instructions Given to Patient (Per Discharging Provider) outpatient follow up with PCP in 7 to 10 days monitor blood pressure twice a day establish care with building construction foreman need pulmonary function test done Total Time Total Time Spent Total Time Spent (In Minutes): 90 Coding Level of Care Code 12159 INP/OBS DISCH >30 MIN Diagnoses Pneumonia J18.9 Hypertension I10 Hypertension type: unspecified Chronic obstructive pulmonary disease J44.9 Hyperglycemia R73.9
== END 2025-04-02 18:29 | disposition home or self-care (01) | DRG 178 ==
LOC: ED 08:14 → EDINP 12:12 → SUATTDRO 12:12 → 2N 15:46